=== PATIENT | male | born 1970 | race Caucasian/White ===

== ENCOUNTER → 2016-07-13 | Outpatient (REF) | payer MEDICAID ==
[2016-07-16 00:06] LABS: BENZODIAZEPINES, URINE SCREEN Negative ng/mL (Cutoff=200); METHADONE, URINE SCREEN Negative ng/mL (Cutoff=300)
== END ==
LOC: M SFHCSACK 10:11
PROVIDERS: ATTEND Physician Assistant
DX: F11.90 Opioid use, unspecified, uncomplicated (principal)

== ENCOUNTER → 2016-08-10 | Outpatient (REF) | payer OTHER ==
[2016-08-13 00:06] LABS: BENZODIAZEPINES, URINE SCREEN Negative ng/mL (Cutoff=200); METHADONE, URINE SCREEN Negative ng/mL (Cutoff=300); pH, URINE 5.6 (4.5-8.9)
== END ==
LOC: M SFHCSACK 10:39
PROVIDERS: ATTEND Physician Assistant
DX: M50.30 Other cervical disc degeneration, unspecified cervical region (principal); F11.90 Opioid use, unspecified, uncomplicated

== ENCOUNTER 2016-09-03 11:33 | Emergency (ER) | payer OTHER ==
[~2016-09-03] VITALS: Ht 177.8 cm; Wt 131.5 kg
[2016-09-03] MEDS ORDERED: OXYC1SOL PO (11:42)
[2016-09-03] MEDS ORDERED: FURO40TA2 PO (11:46)
[2016-09-03] MEDS ORDERED: MELA0.02 PO (11:46)
[2016-09-03] MEDS ORDERED: PRIL20CA9 PO (11:46)
[2016-09-03] MEDS ORDERED: CELE20TA PO (11:46)
[2016-09-03] MEDS ORDERED: SIMV40TA2 PO (11:46)
[2016-09-03] MEDS ORDERED: IBUP600T26 PO (11:46)
[2016-09-03] MEDS ORDERED: BUPR10TASR PO (11:46)
[2016-09-03] MEDS ORDERED: ROPI4TAB21 PO (11:46)
[2016-09-03] MEDS ORDERED: NEUR300C PO (11:46)
[2016-09-03] MEDS ORDERED: CARV25TA PO (11:46)
[2016-09-03] MEDS ORDERED: ASPI81CH PO (11:46)
[2016-09-03] MEDS ORDERED: COLA100C3 PO (11:46)
[2016-09-03 12:53] LABS: ANION GAP 5 MEQ/L (8-16); BLOOD UREA NITROGEN 16 MG/DL (7-18); CALCIUM LEVEL 9.2 MG/DL (8.5-10.1); CARBON DIOXIDE LEVEL 30 MEQ/L (21-32); CHLORIDE LEVEL 104 MEQ/L (98-107); CREATININE FOR GFR 0.84 MG/DL (0.70-1.30); GLOMERULAR FILTRATION RATE > 60.0 (>60); GLUCOSE, FASTING 102 MG/DL (70-105); POTASSIUM SERUM 4.4 MEQ/L (3.5-5.1); SODIUM LEVEL 139 MEQ/L (136-145)
[2016-09-03 13:11] LABS: BASO # 0.3 K/mm3 (0.0-0.2); BASO % 2.9 % (0.0-1.0); EOS # 0.4 K/mm3 (0.0-0.50); EOS % 3.7 % (0.0-3.0); LARGE UNSTAINED CELL # 0.3 K/mm3 (0.0-0.4); LYMPH # 2.5 K/mm3 (1.5-4.5); MEAN CORPUSCULAR HEMOGLOBIN 24.1 pg (27.0-33.0); MEAN CORPUSCULAR HGB CONC 31.4 g/dl (32.0-36.5); MEAN CORPUSCULAR VOLUME 76.7 fl (80.0-96.0); MONO # 0.8 K/mm3 (0.0-0.8); MONO % 6.8 % (0.0-5.0); NEUTROPHILS # 6.9 K/mm3 (1.8-7.7); NEUTROPHILS % 61.7 % (36.0-66.0); PLATELET COUNT, AUTOMATED 229 k/mm3 (150-450); RED CELL DISTRIBUTION WIDTH 17.9 % (11.5-14.5); WHITE BLOOD COUNT 11.2 K/mm3 (4.0-10.0)
[2016-09-03 13:55] LABS: ERYTHROCYTE SEDIMENTATION RATE 5 mm/hr (0-15)
[2016-09-03 14:12] VITALS: BP 118/67
--- NOTE | 2016-09-03 14:32 | REP ---
MR CERVICAL SPINE WITHOUT AND WITH CONTRAST: HISTORY: Neurofibroma. CONTRAST: ProHance 20 mL. COMPARISON: CT 09/02/2016. A disc bulge with associated osteophyte formation is present at the C5-6 level. There is minimal effacement of the thecal sac without spinal cord compression. Bilateral uncinate process hypertrophy is present. This produces minimal narrowing of the C5 neural foramina. There is no other disc bulge or herniation. The remaining neural foramina are patent. The spinal cord is normal in signal intensity. There is no abnormal enhancement. The C5-6 intervertebral disc is decreased in height consistent with disc degeneration. Normal signal intensity is present in the cervical vertebral bodies. There is loss of the normal lordotic curve. IMPRESSION: There is cervical spondylosis at the C5-6 level without spinal cord compression. Signed by Jaleel Thomas MD 09/03/2016 02:35 P
== END 2016-09-03 14:15 | disposition home or self-care (01) ==
LOC: M ED 12:43
DX: M50.222 Other cervical disc displacement at C5-C6 level (principal); I10 Essential (primary) hypertension; G89.29 Other chronic pain; M51.9 Unspecified thoracic, thoracolumbar and lumbosacral intervertebral disc disorder; Z79.899 Other long term (current) drug therapy; Z79.82 Long term (current) use of aspirin; Z88.1 Allergy status to other antibiotic agents
CPT/HCPCS: 36415; 72156; 80048; 85025; 85652; 99282; A9576

== ENCOUNTER → 2016-10-12 | Outpatient (REF) | payer OTHER ==
[~2016-10-12] MED LIST: ASPI81CH PO; BUPR10TASR PO; CARV25TA PO; CELE20TA PO; COLA100C3 PO; FURO40TA2 PO; IBUP600T26 PO; MELA0.02 PO; NEUR300C PO; OXYC1SOL PO; PRIL20CA9 PO; ROPI4TAB21 PO; SIMV40TA2 PO
[2016-10-12 15:42] LABS: BASO # 0.2 K/mm3 (0.0-0.2); BASO % 1.6 % (0.0-1.0); EOS # 0.3 K/mm3 (0.0-0.50); EOS % 2.7 % (0.0-3.0); LARGE UNSTAINED CELL # 0.3 K/mm3 (0.0-0.4); LARGE UNSTAINED CELL % 2.6 % (0.0-4.0); LYMPH # 2.7 K/mm3 (1.5-4.5); LYMPH % 27.3 % (24.0-44.0); MEAN CORPUSCULAR HEMOGLOBIN 25.1 pg (27.0-33.0); MEAN CORPUSCULAR HGB CONC 31.5 g/dl (32.0-36.5); MEAN CORPUSCULAR VOLUME 79.8 fl (80.0-96.0); MONO # 0.7 K/mm3 (0.0-0.8); MONO % 6.9 % (0.0-5.0); NEUTROPHILS # 5.8 K/mm3 (1.8-7.7); NEUTROPHILS % 58.9 % (36.0-66.0); PLATELET COUNT, AUTOMATED 224 k/mm3 (150-450); RED CELL DISTRIBUTION WIDTH 17.5 % (11.5-14.5); WHITE BLOOD COUNT 9.9 K/mm3 (4.0-10.0)
== END ==
LOC: M SFHCSACK 11:24
PROVIDERS: ATTEND Physician Assistant
DX: E78.2 Mixed hyperlipidemia (principal)

== ENCOUNTER → 2017-01-13 | Outpatient (REF) | payer OTHER ==
[~2017-01-13] MED LIST changes: -COLA100C3 PO; +COLA100C5 PO; +IBUP-1022 PO; -IBUP600T26 PO; -MELA0.02 PO; +MELA3TAB49 PO; -OXYC1SOL PO; +OXYC1SOL3 PO
[2017-01-13 16:16] LABS: BASO # 0.3 K/mm3 (0.0-0.2); BASO % 2.9 % (0.0-1.0); EOS # 0.2 K/mm3 (0.0-0.50); EOS % 2.3 % (0.0-3.0); LARGE UNSTAINED CELL # 0.2 K/mm3 (0.0-0.4); LARGE UNSTAINED CELL % 1.6 % (0.0-4.0); LYMPH # 2.6 K/mm3 (1.5-4.5); LYMPH % 22.7 % (24.0-44.0); MEAN CORPUSCULAR HEMOGLOBIN 24.8 pg (27.0-33.0); MEAN CORPUSCULAR HGB CONC 31.5 g/dl (32.0-36.5); MEAN CORPUSCULAR VOLUME 78.8 fl (80.0-96.0); MONO # 0.8 K/mm3 (0.0-0.8); MONO % 7.1 % (0.0-5.0); NEUTROPHILS # 6.8 K/mm3 (1.8-7.7); NEUTROPHILS % 63.5 % (36.0-66.0); PLATELET COUNT, AUTOMATED 242 k/mm3 (150-450); RED CELL DISTRIBUTION WIDTH 16.6 % (11.5-14.5); WHITE BLOOD COUNT 10.7 K/mm3 (4.0-10.0)
[2017-01-13 17:17] LABS: ALBUMIN 3.5 GM/DL (3.2-5.2); ALBUMIN/GLOBULIN RATIO 1.03 (1.00-1.93); ALKALINE PHOSPHATASE 136 U/L (45-117); ALT/SGPT 32 U/L (12-78); ANION GAP 10 MEQ/L (8-16); AST/SGOT 18 U/L (15-37); BILIRUBIN,TOTAL 0.3 MG/DL (0.2-1.0); BLOOD UREA NITROGEN 12 MG/DL (7-18); CALCIUM LEVEL 8.1 MG/DL (8.5-10.1); CARBON DIOXIDE LEVEL 28 MEQ/L (21-32); CHLORIDE LEVEL 104 MEQ/L (98-107); CHOLESTEROL LEVEL 159 MG/DL (<200); CREATININE FOR GFR 0.77 MG/DL (0.70-1.30); FREE T4 0.96 NG/DL (0.76-1.46); GLOMERULAR FILTRATION RATE > 60.0 (>60); GLUCOSE, FASTING 90 MG/DL (70-105); SODIUM LEVEL 142 MEQ/L (136-145); TOTAL PROTEIN 6.9 GM/DL (6.4-8.2); TRIGLYCERIDES LEVEL 364 MG/DL (<150)
== END ==
LOC: M SFHCSACK 09:51
PROVIDERS: ATTEND Physician Assistant
DX: R53.83 Other fatigue (principal); I10 Essential (primary) hypertension; E78.2 Mixed hyperlipidemia

== ENCOUNTER → 2017-02-05 | Outpatient (REF) | payer OTHER ==
[2017-02-05 17:27] LABS: PERCENT SATURATION 14.4 % (19.7-50.0)
== END ==
LOC: M SFHCSACK 10:40
PROVIDERS: ATTEND Physician Assistant
DX: D64.9 Anemia, unspecified (principal)

== ENCOUNTER → 2017-05-19 | Outpatient (REF) | payer OTHER ==
[2017-05-19 14:58] LABS: BASO # 0.6 10^3/uL (0.0-0.2); EOS # 0.4 10^3/uL (0.0-0.50); EOS % 3.3 % (0.0-3.0); IMMATURE GRANULOCYTE % 4.6 % (0-0); LYMPH % 28.2 % (24.0-44.0); MEAN CORPUSCULAR HEMOGLOBIN 25.2 pg (27.0-33.0); MEAN CORPUSCULAR VOLUME 81.4 fl (80.0-96.0); MONO # 1.1 10^3/uL (0.0-0.8); MONO % 10.5 % (0.0-5.0); NEUTROPHILS % 47.8 % (36.0-66.0); PLATELET COUNT, AUTOMATED 256 10^3/uL (150-450); RED CELL DISTRIBUTION WIDTH 16.9 % (11.5-14.5); WHITE BLOOD COUNT 10.5 10^3/uL (4.0-10.0)
[2017-05-19 15:28] LABS: ALBUMIN 3.8 GM/DL (3.2-5.2); ALBUMIN/GLOBULIN RATIO 1.06 (1.00-1.93); ALKALINE PHOSPHATASE 121 U/L (45-117); ALT/SGPT 27 U/L (12-78); ANION GAP 6 MEQ/L (8-16); AST/SGOT 15 U/L (7-37); BILIRUBIN,TOTAL 0.3 MG/DL (0.2-1.0); BLOOD UREA NITROGEN 15 MG/DL (7-18); CALCIUM LEVEL 8.4 MG/DL (8.5-10.1); CARBON DIOXIDE LEVEL 31 MEQ/L (21-32); CHLORIDE LEVEL 101 MEQ/L (98-107); CHOLESTEROL LEVEL 208 MG/DL (<200); CREATININE FOR GFR 0.79 MG/DL (0.70-1.30); GLOMERULAR FILTRATION RATE > 60.0 (>60); GLUCOSE, FASTING 101 MG/DL (70-105); POTASSIUM SERUM 4.7 MEQ/L (3.5-5.1); SODIUM LEVEL 138 MEQ/L (136-145); TOTAL PROTEIN 7.4 GM/DL (6.4-8.2); TRIGLYCERIDES LEVEL 237 MG/DL (<150)
[2017-05-19 15:40] LABS: BASO % 5.6 % (0.0-1.0); POSITIVE DIFF POS FLAG
== END ==
LOC: M SFHCSACK 08:43
PROVIDERS: ATTEND Physician Assistant
DX: I10 Essential (primary) hypertension (principal); D64.9 Anemia, unspecified; E78.2 Mixed hyperlipidemia; E55.9 Vitamin D deficiency, unspecified

== ENCOUNTER 2017-05-30 03:39 | Inpatient (IN) | payer BC, OTHER ==
[2017-05-30] MEDS: ADACEL/BOOSTRIX VACCINE (DIPHTH/PERTUSS/ACELL/TETANUS)0.5ML SYR (90715) IM (04:34)
[2017-05-30] MEDS: ONDANSETRON 4MG/2ML VIAL (J2405) IV (05:14)
[2017-05-30] MEDS: MORPHINE 4 MG/ML 1ML SYRINGE IV ×3 (05:16→07:45)
[2017-05-30 05:26] LABS: MEAN CORPUSCULAR HEMOGLOBIN 25.3 pg (27.0-33.0); MEAN CORPUSCULAR HGB CONC 31.7 g/dl (32.0-36.5); MEAN CORPUSCULAR VOLUME 79.7 fl (80.0-96.0); PLATELET COUNT, AUTOMATED 267 10^3/uL (150-450); RED CELL DISTRIBUTION WIDTH 17.4 % (11.5-14.5); WHITE BLOOD COUNT 18.4 10^3/uL (4.0-10.0)
[2017-05-30 05:35] LABS: ANION GAP 7 MEQ/L (8-16); BLOOD UREA NITROGEN 11 MG/DL (7-18); CALCIUM LEVEL 8.1 MG/DL (8.5-10.1); CARBON DIOXIDE LEVEL 27 MEQ/L (21-32); CHLORIDE LEVEL 104 MEQ/L (98-107); CREATININE FOR GFR 0.81 MG/DL (0.70-1.30); GLOMERULAR FILTRATION RATE > 60.0 (>60); GLUCOSE, FASTING 102 MG/DL (70-105); POTASSIUM SERUM 3.7 MEQ/L (3.5-5.1); SODIUM LEVEL 138 MEQ/L (136-145)
[2017-05-30] MEDS: NS 1,000 ML IV ×2 (06:00→09:30)
[2017-05-30] MEDS ORDERED: LIDOCAINE 1% MDV 20ML VIAL As Ordered (07:31)
[2017-05-30] MEDS: CitaloPRAM (CeleXA) 20 MG TAB PO (09:00)
[2017-05-30] MEDS: OMEPRAZOLE 20 MG CAP PO (09:00)
[2017-05-30] MEDS: rOPINIRole 0.25 MG TAB(REQUIP) PO (09:00)
[2017-05-30] MEDS: SIMVASTATIN 40 MG TAB PO (09:00)
[2017-05-30] MEDS: FOLIC ACID 1 MG TAB PO (09:00)
[2017-05-30] MEDS: THIAMINE 100 MG TAB PO (09:00)
[2017-05-30] MEDS: buPROPion **XL** TABLET 150MG (WELLBUTRIN XL) PO (09:00)
[2017-05-30] MEDS: MULTIVITAMINS/MINERALS THERAP 1 TAB PO (09:00)
[2017-05-30] MEDS ORDERED: LR 1,000 ML IV (09:30)
[2017-05-30] MEDS ORDERED: ISOVUE-370 76% 100ML VIAL (Q9967) As Ordered (09:42)
[2017-05-30] MEDS: MORPHINE 2 MG/ML 1ML SYRINGE IV ×2 (10:19→13:37)
[2017-05-30 10:34] LABS: KETONE, URINE AUTO RFX NEGATIVE (NEGATIVE); LEUKOCYTE ESTERASE UR AUTO RFX NEGATIVE (NEGATIVE); MUCUS, URINE RFX SMALL (NEGATIVE); NITRITE, URINE AUTO RFX NEGATIVE (NEGATIVE); RBC, URINE AUTO RFX 1 /HPF (0-3); SPECIFIC GRAVITY UR AUTO RFX 1.005 (1.002-1.035); SQUAM EPITHELIAL CELL UR AURFX 0 /HPF (0-6); WBC, URINE AUTO RFX 1 /HPF (0-3)
[2017-05-30 10:50] LABS: METHADONE URINE NEGATIVE (NEGATIVE)
[2017-05-30] MEDS: CARVedilol 12.5 MG TAB PO ×2 (11:16→23:12)
[2017-05-30] MEDS: LABETALOL HCL 100 MG/20 ML VIAL IV (11:16)
[2017-05-30] MEDS ORDERED: ROCURONIUM BROMIDE 50 MG/5 ML VIAL As Ordered ×2 (14:23→15:00)
[2017-05-30] MEDS ORDERED: LIDOCAINE 2% INJ 100 MG/5 ML SDV (FOR ANES.) As Ordered (14:23)
[2017-05-30] MEDS ORDERED: PROPOFOL 200 MG/20 ML VIAL As Ordered ×2 (14:23→14:41)
[2017-05-30] MEDS ORDERED: fentaNYL 100 MCG/2 ML INJECTION (J3010) As Ordered ×3 (14:23→18:21)
[2017-05-30] MEDS ORDERED: PHENYLEPHRINE INJ 10MG/ML VIAL (J2370) As Ordered (14:23)
[2017-05-30] MEDS ORDERED: MIDAZOLAM INJ 2 MG/2 ML VIAL (J2250) As Ordered ×2 (14:23→18:24)
[2017-05-30] MEDS ORDERED: SUCCINYLCHOLINE 100 MG/5 ML SYRINGE (J0330) As Ordered (14:24)
[2017-05-30] MEDS ORDERED: PHENYLephrine HCL 500 MCG/5 ML (100MCG/ML) SYRINGE (J2370) As Ordered (14:24)
[2017-05-30] MEDS: ceFAZolin 2 GM/D5W 50 ML IV BAG (J0690 PER 500MG) As Ordered (14:29)
[2017-05-30] MEDS ORDERED: HYDROmorphone HCL 2 MG/ML 1ML VIAL (J1170) As Ordered (15:46)
[2017-05-30] MEDS: GABAPENTIN 300 MG CAP PO ×2 (16:00→23:11)
[2017-05-30] MEDS ORDERED: LABETALOL HCL 100 MG/20 ML VIAL As Ordered (16:09)
[2017-05-30] MEDS ORDERED: ONDANSETRON 4MG/2ML VIAL (J2405) As Ordered (16:24)
[2017-05-30] MEDS: ceFAZolin 1GM INJ (J0690 PER 500MG) As Ordered (16:24)
[2017-05-30] MEDS ORDERED: NEOSTIGMINE 10 MG/10 ML VIAL (J2710) As Ordered (16:24)
[2017-05-30] MEDS ORDERED: GLYCOPYRROLATE INJ 0.2 MG/ML 2 ML VIAL As Ordered (16:24)
[2017-05-30] MEDS: BUPIVACAINE HCL 0.5% 30 ML VIAL As Ordered (17:26)
[2017-05-30] MEDS: LR 1,000 ML IV ×2 (17:55→23:11)
[2017-05-30] MEDS ORDERED: PERCOCET 5MG/325MG TAB As Ordered (18:19)
[2017-05-30] MEDS: PERCOCET 5MG/325MG TAB PO (18:20)
[2017-05-30] MEDS: fentaNYL 100 MCG/2 ML INJECTION (J3010) IV ×3 (18:25→18:35)
[2017-05-30] MEDS: MIDAZOLAM INJ 2 MG/2 ML VIAL (J2250) IV (18:33)
[2017-05-30] MEDS ORDERED: FLEET ENEMA PR (19:45)
[2017-05-30] MEDS ORDERED: ONDANSETRON 4MG/2ML VIAL (J2405) IV (19:45)
[2017-05-30] MEDS ORDERED: oxyCODONE 5MG TAB PO (19:45)
[2017-05-30] MEDS: oxyCODONE 5MG TAB PO (21:09)
[2017-05-30] MEDS: ACETAMINOPHEN 500 MG TAB PO (23:12)
[2017-05-31] MEDS: MORPHINE 4 MG/ML 1ML SYRINGE IV (00:23)
[2017-05-31] MEDS: oxyCODONE 5MG TAB PO ×3 (01:22→21:11)
[2017-05-31] MEDS: ACETAMINOPHEN 500 MG TAB PO ×3 (05:07→21:10)
[2017-05-31 05:42] LABS: MEAN CORPUSCULAR HEMOGLOBIN 25.5 pg (27.0-33.0); MEAN CORPUSCULAR HGB CONC 31.6 g/dl (32.0-36.5); MEAN CORPUSCULAR VOLUME 80.7 fl (80.0-96.0); PLATELET COUNT, AUTOMATED 226 10^3/uL (150-450); RED CELL DISTRIBUTION WIDTH 17.5 % (11.5-14.5); WHITE BLOOD COUNT 18.9 10^3/uL (4.0-10.0)
[2017-05-31] MEDS: ENOXAPARIN 40 MG/0.4 ML SYRINGE (J1650) SC (08:33)
[2017-05-31] MEDS: OMEPRAZOLE 20 MG CAP PO (08:33)
[2017-05-31] MEDS: GABAPENTIN 300 MG CAP PO ×3 (08:34→21:08)
[2017-05-31] MEDS: FOLIC ACID 1 MG TAB PO (08:34)
[2017-05-31] MEDS: SIMVASTATIN 40 MG TAB PO (08:34)
[2017-05-31] MEDS: MULTIVITAMINS/MINERALS THERAP 1 TAB PO (08:34)
[2017-05-31] MEDS: THIAMINE 100 MG TAB PO (08:34)
[2017-05-31] MEDS: ASPIRIN 81 MG CHEW TABLET PO (08:36)
[2017-05-31] MEDS: CitaloPRAM (CeleXA) 20 MG TAB PO (08:36)
[2017-05-31] MEDS: buPROPion **XL** TABLET 150MG (WELLBUTRIN XL) PO (08:37)
[2017-05-31] MEDS: rOPINIRole 0.25 MG TAB(REQUIP) PO (08:37)
[2017-05-31] MEDS: CARVedilol 12.5 MG TAB PO ×2 (08:38→21:08)
[2017-05-31] MEDS: MIRALAX *UNIT DOSE* 17GM PACKET PO (21:11)
[2017-05-31] MEDS: CLINDAMYCIN 150 MG CAP PO (22:12)
[2017-06-01] MEDS: oxyCODONE 5MG TAB PO ×4 (02:19→21:04)
[2017-06-01] MEDS: ACETAMINOPHEN 500 MG TAB PO ×3 (07:06→21:06)
[2017-06-01] MEDS: CLINDAMYCIN 150 MG CAP PO ×4 (08:49→21:06)
[2017-06-01] MEDS: rOPINIRole 0.25 MG TAB(REQUIP) PO (08:50)
[2017-06-01] MEDS: MULTIVITAMINS/MINERALS THERAP 1 TAB PO (08:50)
[2017-06-01] MEDS: THIAMINE 100 MG TAB PO (08:50)
[2017-06-01] MEDS: GABAPENTIN 300 MG CAP PO ×3 (08:50→21:03)
[2017-06-01] MEDS: FOLIC ACID 1 MG TAB PO (08:50)
[2017-06-01] MEDS: CitaloPRAM (CeleXA) 20 MG TAB PO (08:50)
[2017-06-01] MEDS: ASPIRIN 81 MG CHEW TABLET PO (08:50)
[2017-06-01] MEDS: OMEPRAZOLE 20 MG CAP PO (08:50)
[2017-06-01] MEDS: buPROPion **XL** TABLET 150MG (WELLBUTRIN XL) PO (08:50)
[2017-06-01] MEDS: SIMVASTATIN 40 MG TAB PO (08:51)
[2017-06-01] MEDS: ENOXAPARIN 40 MG/0.4 ML SYRINGE (J1650) SC (08:52)
[2017-06-01] MEDS: CARVedilol 12.5 MG TAB PO ×2 (08:52→21:05)
[2017-06-01] MEDS: MIRALAX *UNIT DOSE* 17GM PACKET PO (21:06)
[2017-06-01] MEDS: MORPHINE 4 MG/ML 1ML SYRINGE IV (23:08)
[2017-06-02] MEDS: oxyCODONE 5MG TAB PO ×2 (04:18→08:18)
[2017-06-02] MEDS: ACETAMINOPHEN 500 MG TAB PO (05:26)
[2017-06-02] MEDS: MULTIVITAMINS/MINERALS THERAP 1 TAB PO (08:17)
[2017-06-02] MEDS: SIMVASTATIN 40 MG TAB PO (08:17)
[2017-06-02] MEDS: OMEPRAZOLE 20 MG CAP PO (08:17)
[2017-06-02] MEDS: CitaloPRAM (CeleXA) 20 MG TAB PO (08:18)
[2017-06-02] MEDS: CLINDAMYCIN 150 MG CAP PO (08:18)
[2017-06-02] MEDS: FOLIC ACID 1 MG TAB PO (08:18)
[2017-06-02] MEDS: buPROPion **XL** TABLET 150MG (WELLBUTRIN XL) PO (08:18)
[2017-06-02] MEDS: THIAMINE 100 MG TAB PO (08:18)
[2017-06-02] MEDS: ASPIRIN 81 MG CHEW TABLET PO (08:19)
[2017-06-02] MEDS: CARVedilol 12.5 MG TAB PO (08:19)
[2017-06-02] MEDS: ENOXAPARIN 40 MG/0.4 ML SYRINGE (J1650) SC (08:19)
[2017-06-02] MEDS: rOPINIRole 0.25 MG TAB(REQUIP) PO (08:19)
[2017-06-02] MEDS: GABAPENTIN 300 MG CAP PO (08:19)
== END 2017-06-02 13:06 | disposition home or self-care (01) | DRG 313 ==
LOC: M ED 03:39 → M ED INP 09:10 → M MSPAV 19:42
PROC: 0QSJ04Z Reposition Right Fibula with Internal Fixation Device, Open Approach (ICD-10-PCS; principal; 2017-05-30 10:00)
PROC: 01NH0ZZ Release Peroneal Nerve, Open Approach (ICD-10-PCS; 2017-05-30 10:00)
DX: S82.841A Displaced bimalleolar fracture of right lower leg, initial encounter for closed fracture (principal); S02.401A Maxillary fracture, unspecified side, initial encounter for closed fracture; E55.9 Vitamin D deficiency, unspecified; G57.32 Lesion of lateral popliteal nerve, left lower limb; J45.20 Mild intermittent asthma, uncomplicated; F10.129 Alcohol abuse with intoxication, unspecified; S01.512A Laceration without foreign body of oral cavity, initial encounter; K21.9 Gastro-esophageal reflux disease without esophagitis; D64.9 Anemia, unspecified; G89.29 Other chronic pain; I25.10 Atherosclerotic heart disease of native coronary artery without angina pectoris; F32.9 Major depressive disorder, single episode, unspecified; E78.5 Hyperlipidemia, unspecified; Z95.2 Presence of prosthetic heart valve; I10 Essential (primary) hypertension; I25.2 Old myocardial infarction; Z79.82 Long term (current) use of aspirin; Z79.899 Other long term (current) drug therapy; Y04.0XXA Assault by unarmed brawl or fight, initial encounter; Y92.009 Unspecified place in unspecified non-institutional (private) residence as the place of occurrence of the external cause; K76.0 Fatty (change of) liver, not elsewhere classified

== ENCOUNTER 2017-07-01 09:28 | Day surgery (SDC) | payer BC ==
[2017-07-01] MEDS: EPINEPHrine 1MG/ML INJ 30ML MD-VIAL As Ordered (10:19)
[2017-07-01] MEDS: METHYLENE BLUE 0.5% (5MG/ML) 10 ML AMP (PROVAYBLUE)(Q9968 PER 1MG) As Ordered (10:19)
[2017-07-01] MEDS ORDERED: fentaNYL 100 MCG/2 ML INJECTION (J3010) As Ordered (10:27)
[2017-07-01] MEDS ORDERED: PROPOFOL 200 MG/20 ML VIAL As Ordered (10:27)
[2017-07-01] MEDS ORDERED: SUCCINYLCHOLINE 100 MG/5 ML SYRINGE (J0330) As Ordered (10:27)
[2017-07-01] MEDS ORDERED: MIDAZOLAM INJ 2 MG/2 ML VIAL (J2250) As Ordered (10:27)
[2017-07-01] MEDS ORDERED: ROCURONIUM BROMIDE 50 MG/5 ML VIAL As Ordered (10:27)
[2017-07-01] MEDS ORDERED: dexameTHASONE 4 MG/ML 1ML VIAL (J1100) As Ordered (10:29)
[2017-07-01] MEDS ORDERED: ONDANSETRON 4MG/2ML VIAL (J2405) As Ordered (10:29)
[2017-07-01] MEDS ORDERED: LR 1,000 ML IV (11:00)
[2017-07-01] MEDS: ACETAMINOPH W/CODEINE #3 TAB UD PO (12:53)
== END 2017-07-01 13:14 | disposition home or self-care (01) ==
LOC: M SDC 09:28
DX: S02.2XXA Fracture of nasal bones, initial encounter for closed fracture (principal); Y93.9 Activity, unspecified; Y92.9 Unspecified place or not applicable
CPT/HCPCS: 21320

== ENCOUNTER → 2017-08-13 | Outpatient (CLI) | payer MEDICAID ==
[2017-08-13 13:26] LABS: ALBUMIN/GLOBULIN RATIO 1.08 (1.00-1.93); ALKALINE PHOSPHATASE 124 U/L (45-117); ALT/SGPT 22 U/L (12-78); AST/SGOT 19 U/L (7-37); BILIRUBIN,DIRECT 0.1 MG/DL (0.0-0.2); BILIRUBIN,TOTAL 0.3 MG/DL (0.2-1.0); FERRITIN 17 NG/ML (26-388); IRON (FE) 69 UG/DL (65-175); PERCENT SATURATION 16.1 % (19.7-50.0); TOTAL IRON BINDING CAPACITY 429 UG/DL (250-450); TOTAL PROTEIN 7.7 GM/DL (6.4-8.2)
[2017-08-13 13:29] LABS: ALPHA FETOPROTEIN TUMOR QUANT < 1.3 NG/ML (<8.1)
[2017-08-13 13:30] LABS: HEPATITIS B SURFACE ANTIBODY NEGATIVE (POSITIVE)
[2017-08-13 13:41] LABS: HEPATITIS B SURFACE ANTIGEN NEGATIVE (NEGATIVE)
[2017-08-13 14:09] LABS: HEPATITIS C VIRUS ABY INDEX 0.5 INDEX (<0.8)
[2017-08-15 00:08] LABS: ANTI-SMOOTH MUSCLE ANTIBODY 19 Units (0-19)
[2017-08-15 00:08] LABS: ANTI-MITOCHONDRIAL ANTIBODY 68.1 Units (0.0-20.0); ANTINUCLEAR ANTIBODIES DIRECT Negative (Negative); HEPATITIS A IgG TOTAL Negative (Negative); LIVER-KIDNEY MICROSOMAL ABY 2.1 Units (0.0-20.0)
== END ==
LOC: M LAB 11:49
DX: R94.5 Abnormal results of liver function studies (principal)
CPT/HCPCS: 83550

== ENCOUNTER → 2017-08-13 | Outpatient (CLI) | payer MEDICAID | LOC: M PAIN 14:30 | DX: G89.29 Other chronic pain (principal); M25.571 Pain in right ankle and joints of right foot; E78.5 Hyperlipidemia, unspecified; I10 Essential (primary) hypertension; I25.2 Old myocardial infarction; K21.9 Gastro-esophageal reflux disease without esophagitis; F41.9 Anxiety disorder, unspecified; K76.0 Fatty (change of) liver, not elsewhere classified; Z79.82 Long term (current) use of aspirin; Z79.891 Long term (current) use of opiate analgesic; Z79.899 Other long term (current) drug therapy; Z88.1 Allergy status to other antibiotic agents; Z86.79 Personal history of other diseases of the circulatory system | CPT/HCPCS: G0463 ==

== ENCOUNTER → 2017-08-31 | Outpatient (CLI) | payer MEDICAID, BC | LOC: M RAD 08:37 | DX: R94.5 Abnormal results of liver function studies (principal); K76.0 Fatty (change of) liver, not elsewhere classified | CPT/HCPCS: 76705 ==

== ENCOUNTER → 2017-09-17 | Outpatient (CLI) | payer MEDICAID | LOC: M PAIN 11:00 | DX: G89.29 Other chronic pain (principal); M25.572 Pain in left ankle and joints of left foot; E78.5 Hyperlipidemia, unspecified; I10 Essential (primary) hypertension; I25.2 Old myocardial infarction; K21.9 Gastro-esophageal reflux disease without esophagitis; F41.9 Anxiety disorder, unspecified; K76.0 Fatty (change of) liver, not elsewhere classified; Z79.82 Long term (current) use of aspirin; Z79.891 Long term (current) use of opiate analgesic; Z79.899 Other long term (current) drug therapy; Z88.1 Allergy status to other antibiotic agents; Z87.81 Personal history of (healed) traumatic fracture; Z87.828 Personal history of other (healed) physical injury and trauma | CPT/HCPCS: G0463 ==

== ENCOUNTER 2018-01-04 09:33 | Day surgery (SDC) | payer OTHER ==
[2018-01-04] MEDS ORDERED: PROPOFOL 500 MG/50 ML VIAL As Ordered (09:37)
[2018-01-04] MEDS ORDERED: fentaNYL 100 MCG/2 ML INJECTION (J3010) As Ordered (09:44)
[2018-01-04] MEDS ORDERED: LIDOCAINE 2% INJ 100 MG/5 ML SDV (FOR ANES.) As Ordered (09:44)
[2018-01-04] MEDS: NS 1,000 ML IV (09:45)
== END 2018-01-04 11:44 | disposition home or self-care (01) ==
LOC: M OPP 09:33
DX: D50.9 Iron deficiency anemia, unspecified (principal); K63.89 Other specified diseases of intestine; D12.3 Benign neoplasm of transverse colon; D12.5 Benign neoplasm of sigmoid colon; K62.1 Rectal polyp; K57.30 Diverticulosis of large intestine without perforation or abscess without bleeding; K64.8 Other hemorrhoids; K22.8 Other specified diseases of esophagus; K31.89 Other diseases of stomach and duodenum; I10 Essential (primary) hypertension; I25.2 Old myocardial infarction; R07.89 Other chest pain; Z95.5 Presence of coronary angioplasty implant and graft; I20.9 Angina pectoris, unspecified; E78.5 Hyperlipidemia, unspecified; K21.9 Gastro-esophageal reflux disease without esophagitis; M19.90 Unspecified osteoarthritis, unspecified site; F41.9 Anxiety disorder, unspecified; F32.9 Major depressive disorder, single episode, unspecified; J45.909 Unspecified asthma, uncomplicated; G47.30 Sleep apnea, unspecified; Z88.1 Allergy status to other antibiotic agents; Z79.82 Long term (current) use of aspirin; Z79.899 Other long term (current) drug therapy
CPT/HCPCS: 45380

== ENCOUNTER → 2018-01-05 | Outpatient (REF) | payer OTHER, MEDICAID ==
[2018-01-05 14:49] LABS: ALBUMIN 3.5 GM/DL (3.2-5.2); ALBUMIN/GLOBULIN RATIO 0.88 (1.00-1.93); ALKALINE PHOSPHATASE 115 U/L (45-117); ALT/SGPT 25 U/L (12-78); ANION GAP 7 MEQ/L (8-16); AST/SGOT 20 U/L (7-37); BILIRUBIN,TOTAL 0.3 MG/DL (0.2-1.0); BLOOD UREA NITROGEN 11 MG/DL (7-18); CALCIUM LEVEL 8.6 MG/DL (8.5-10.1); CARBON DIOXIDE LEVEL 29 MEQ/L (21-32); CHLORIDE LEVEL 106 MEQ/L (98-107); CHOLESTEROL LEVEL 198 MG/DL (<200); CREATININE FOR GFR 0.75 MG/DL (0.70-1.30); GLOMERULAR FILTRATION RATE > 60.0 (>60); GLUCOSE, FASTING 94 MG/DL (70-100); HDL CHOLESTEROL 60 MG/DL (>40); NON-HDL-C 138 MG/DL; SODIUM LEVEL 142 MEQ/L (136-145); TOTAL PROTEIN 7.5 GM/DL (6.4-8.2); TRIGLYCERIDES LEVEL 140 MG/DL (<150)
[2018-01-05 14:51] LABS: POTASSIUM SERUM 5.3 MEQ/L (3.5-5.1)
== END ==
LOC: M SFHCSACK 08:11
DX: E78.2 Mixed hyperlipidemia (principal)
CPT/HCPCS: 80053

== ENCOUNTER → 2018-01-06 | Outpatient (CLI) | payer OTHER ==
[~2018-01-06] MED LIST changes: -ASPI81CH PO; -BUPR10TASR PO; -CARV25TA PO; -CELE20TA PO; -COLA100C5 PO; -FURO40TA2 PO; -IBUP-1022 PO; +LIDOCAINE 1% MDV 20ML VIAL As Ordered; -MELA3TAB49 PO; -NEUR300C PO; -OXYC1SOL3 PO; -PRIL20CA9 PO; -ROPI4TAB21 PO; -SIMV40TA2 PO
[2018-01-06 09:50] LABS: BASO # 0.4 10^3/uL (0.0-0.2); EOS # 0.3 10^3/uL (0.0-0.50); EOS % 2.1 % (0.0-3.0); IMMATURE GRANULOCYTE % 3.6 % (0-3.0); LYMPH # 3.1 10^3/uL (1.5-4.5); LYMPH % 24.2 % (24.0-44.0); MEAN CORPUSCULAR HEMOGLOBIN 25.5 pg (27.0-33.0); MEAN CORPUSCULAR HGB CONC 31.8 g/dl (32.0-36.5); MEAN CORPUSCULAR VOLUME 80.3 fl (80.0-96.0); MONO # 0.9 10^3/uL (0.0-0.8); MONO % 6.8 % (0.0-5.0); NEUTROPHILS # 7.6 10^3/uL (1.8-7.7); NEUTROPHILS % 59.8 % (36.0-66.0); PLATELET COUNT, AUTOMATED 266 10^3/uL (150-450); RED BLOOD COUNT 5.48 10^6/uL (4.30-6.10); RED CELL DISTRIBUTION WIDTH 16.7 % (11.5-14.5); WHITE BLOOD COUNT 12.7 10^3/uL (4.0-10.0)
[2018-01-06 10:01] LABS: INR 0.93; PARTIAL THROMBOPLASTIN TIME 27.6 SECONDS (25.4-37.6); PROTHROMBIN TIME 12.6 SECONDS (12.1-14.4)
[2018-01-06 10:05] LABS: FERRITIN 15 NG/ML (26-388); IRON (FE) 41 UG/DL (65-175); PERCENT SATURATION 9.8 % (19.7-50.0); TOTAL IRON BINDING CAPACITY 420 UG/DL (250-450)
[2018-01-06 10:06] LABS: BASO % 3.5 % (0.0-1.0); POSITIVE DIFF POS FLAG
== END ==
LOC: M RADPRO 09:35
DX: R94.5 Abnormal results of liver function studies (principal); D50.9 Iron deficiency anemia, unspecified
CPT/HCPCS: 47000

== ENCOUNTER → 2018-05-18 | Outpatient (CLI) | payer OTHER ==
[2018-05-18 17:53] LABS: ALBUMIN 4.2 GM/DL (3.2-5.2); ALKALINE PHOSPHATASE 92 U/L (45-117); ALT/SGPT 30 U/L (12-78); AST/SGOT 21 U/L (7-37); BILIRUBIN,DIRECT 0.1 MG/DL (0.0-0.2); BILIRUBIN,TOTAL 0.4 MG/DL (0.2-1.0); GAMMA GLUTAMYLTRANSPEPTIDASE 56 U/L (15-85); TOTAL PROTEIN 7.7 GM/DL (6.4-8.2)
[2018-05-21 00:08] LABS: ANTI-MITOCHONDRIAL ANTIBODY 67.3 Units (0.0-20.0)
== END ==
LOC: M LAB 16:49
DX: R94.5 Abnormal results of liver function studies (principal)
CPT/HCPCS: 82977

== ENCOUNTER → 2018-07-05 | Outpatient (REF) | payer MEDICAID, OTHER ==
[~2018-07-05] MED LIST changes: +ASPI325T PO; +ASPI325T25 PO; +ASPI81CH PO; +BUPR10TASR PO; +BUPR150T3 PO; +CARV25TA PO; +CELE20TA PO; +CLEO150C PO; +COLA100C5 PO; +DRIS50003 PO; +FURO40TA2 PO; +GABA600T4 PO; +IBUP-1022 PO; -LIDOCAINE 1% MDV 20ML VIAL As Ordered; +LISI20TA PO; +LOVE1INJ SC; +MELA3TAB PO; +MELA3TAB49 PO; +MELA5TAB17 PO; +MELA5TAB20 PO; +NEUR300C PO; +OXYC15TA76 PO; +OXYC1SOL3 PO; +OXYC1TAB23 PO; +PRIL20CA9 PO; +ROPI0.5T PO; +ROPI4TAB21 PO; +SIMV40TA2 PO
[2018-07-05 13:06] LABS: HEMATOCRIT 44.4 % (42.0-52.0); MEAN CORPUSCULAR HEMOGLOBIN 27.1 pg (27.0-33.0); MEAN CORPUSCULAR HGB CONC 31.5 g/dl (32.0-36.5); MEAN CORPUSCULAR VOLUME 85.9 fl (80.0-96.0); PLATELET COUNT, AUTOMATED 244 10^3/uL (150-450); RED BLOOD COUNT 5.17 10^6/uL (4.30-6.10)
[2018-07-05 13:07] LABS: BLOOD UREA NITROGEN 15 MG/DL (7-18); CALCIUM LEVEL 9.1 MG/DL (8.5-10.1); CARBON DIOXIDE LEVEL 29 MEQ/L (21-32); CHLORIDE LEVEL 103 MEQ/L (98-107); CREATININE FOR GFR 0.86 MG/DL (0.70-1.30); GLOMERULAR FILTRATION RATE > 60.0 (>60); GLUCOSE, FASTING 97 MG/DL (70-100); POTASSIUM SERUM 5.2 MEQ/L (3.5-5.1); SODIUM LEVEL 138 MEQ/L (136-145)
[2018-07-05 13:56] LABS: BASOPHILS 4 % (0-4); EOSINOPHILS 3 % (0-5); LYMPHOCYTES 21 % (16-52); MONOCYTES 2 % (0-8); NEUTROPHILS 70 % (35-75)
[2018-07-05 13:57] LABS: PLATELET ESTIMATE NORMAL (NORMAL)
== END ==
LOC: M SFHCADAM 09:16
PROVIDERS: ATTEND Physician Assistant Medical
DX: Z01.818 Encounter for other preprocedural examination (principal); M16.52 Unilateral post-traumatic osteoarthritis, left hip; M25.551 Pain in right hip

== ENCOUNTER → 2018-07-05 | Outpatient (CLI) | payer OTHER ==
[~2018-07-05] MED LIST changes: +CONRAY-43 43% 50ML VIAL (Q9960) As Ordered ONE; +LIDOCAINE 1% MDV 20ML VIAL As Ordered ONE; +TRIAMCINOLONE ACETONIDE SUSP 40 MG/ML VIAL (J3301) As Ordered ONE
--- NOTE | 2018-07-05 13:53 | REP ---
LEFT ANKLE INJECTION The procedure was performed under the direct supervision of Dr. nieto. The benefits and risks including but not limited to pain infection bleeding and anaphylaxis were explained to the patient and informed consent was obtained. The left tibiotalar joint space was localized using fluoroscopic guidance. The skin was prepped and draped in a sterile fashion. 1% lidocaine was used as a local anesthetic. Using fluoroscopic guidance a 22-gauge needle was inserted and advanced into the joint. 0.5 ml of Conray 43 was injected to verify placement. 6 ml of a solution containing 5 ml of 1% lidocaine and 1 ml of Kenalog 40 mg injected. The needle was then removed. The patient tolerated the procedure well and there were no immediate complications. Less than 6 seconds of fluoroscopy time was utilized for this procedure. Reviewed by CURT Narvaez 07/05/2018 12:58 P Electronically Signed by Darrell Nieto MD 07/05/2018 01:44 P
== END ==
LOC: M RADPRO 10:10
PROVIDERS: ATTEND Physician Assistant Medical
DX: S93.05XD Dislocation of left ankle joint, subsequent encounter (principal)
CPT/HCPCS: 20605; 77002; J3301; Q9960

== ENCOUNTER → 2018-09-01 | Outpatient (REF) | payer OTHER ==
[~2018-09-01] MED LIST changes: +ATOR80TA59 PO; -CONRAY-43 43% 50ML VIAL (Q9960) As Ordered ONE; +IMAT100TAB PO; -LIDOCAINE 1% MDV 20ML VIAL As Ordered ONE; +OMEP10CASR PO; -TRIAMCINOLONE ACETONIDE SUSP 40 MG/ML VIAL (J3301) As Ordered ONE
[2018-09-01 15:13] LABS: BASO # 0.5 10^3/uL (0.0-0.2); EOS # 0.1 10^3/uL (0.0-0.50); EOS % 1.4 % (0.0-3.0); HEMATOCRIT 40.8 % (42.0-52.0); HEMOGLOBIN 12.7 g/dl (13.5-17.5); LYMPH # 2.5 10^3/uL (1.5-4.5); LYMPH % 24.8 % (24.0-44.0); MEAN CORPUSCULAR HEMOGLOBIN 25.9 pg (27.0-33.0); MEAN CORPUSCULAR HGB CONC 31.1 g/dl (32.0-36.5); MEAN CORPUSCULAR VOLUME 83.3 fl (80.0-96.0); MONO # 0.9 10^3/uL (0.0-0.8); MONO % 9.3 % (0.0-5.0); NEUTROPHILS # 5.8 10^3/uL (1.8-7.7); NEUTROPHILS % 57.2 % (36.0-66.0); PLATELET COUNT, AUTOMATED 335 10^3/uL (150-450); WHITE BLOOD COUNT 10.1 10^3/uL (4.0-10.0)
[2018-09-01 15:20] LABS: ALBUMIN 3.8 GM/DL (3.2-5.2); ALT/SGPT 19 U/L (12-78); BILIRUBIN,TOTAL 0.4 MG/DL (0.2-1.0); BLOOD UREA NITROGEN 15 MG/DL (7-18); CALCIUM LEVEL 8.9 MG/DL (8.5-10.1); CARBON DIOXIDE LEVEL 28 MEQ/L (21-32); CHLORIDE LEVEL 104 MEQ/L (98-107); CHOLESTEROL LEVEL 163 MG/DL (<200); CREATININE FOR GFR 0.86 MG/DL (0.70-1.30); FERRITIN 37 NG/ML (26-388); GLOMERULAR FILTRATION RATE > 60.0 (>60); GLUCOSE, FASTING 95 MG/DL (70-100); HDL CHOLESTEROL 50 MG/DL (>40); IRON (FE) 35 UG/DL (65-175); LDL CHOLESTEROL 85 MG/DL (<100); NON-HDL-C 113 MG/DL; PERCENT SATURATION 8.5 % (19.7-50.0); POTASSIUM SERUM 4.7 MEQ/L (3.5-5.1); SODIUM LEVEL 140 MEQ/L (136-145); TOTAL IRON BINDING CAPACITY 410 UG/DL (250-450); TOTAL PROTEIN 7.6 GM/DL (6.4-8.2); TRIGLYCERIDES LEVEL 139 MG/DL (<150)
[2018-09-01 18:03] LABS: BASO % 4.5 % (0.0-1.0)
== END ==
LOC: M SFHCSACK 08:19
PROVIDERS: ATTEND Physician Assistant
DX: D64.9 Anemia, unspecified (principal); E78.2 Mixed hyperlipidemia

== ENCOUNTER → 2018-09-26 | Outpatient (CLI) | payer OTHER ==
[~2018-09-26] MED LIST changes: +ASPI-1 PO; +ASPI-255 PO; -ASPI325T PO; -ASPI325T25 PO; -ASPI81CH PO; +ASPI81CH49 PO
[2018-09-26 17:34] LABS: BASO # 0.3 10^3/uL (0.0-0.2); BASO % 2.7 % (0.0-1.0); EOS # 0.4 10^3/uL (0.0-0.50); EOS % 2.8 % (0.0-3.0); HEMOGLOBIN 12.6 g/dl (13.5-17.5); LYMPH # 3.1 10^3/uL (1.5-4.5); LYMPH % 25.5 % (24.0-44.0); MEAN CORPUSCULAR HGB CONC 30.7 g/dl (32.0-36.5); MEAN CORPUSCULAR VOLUME 84.5 fl (80.0-96.0); MONO # 0.8 10^3/uL (0.0-0.8); MONO % 6.5 % (0.0-5.0); NEUTROPHILS # 7.6 10^3/uL (1.8-7.7); NEUTROPHILS % 61.6 % (36.0-66.0); PLATELET COUNT, AUTOMATED 246 10^3/uL (150-450); RED BLOOD COUNT 4.85 10^6/uL (4.30-6.10); WHITE BLOOD COUNT 12.3 10^3/uL (4.0-10.0)
[2018-09-27 01:43] LABS: ERYTHROCYTE SEDIMENTATION RATE 5 mm/hr (0-15)
== END ==
LOC: M LAB 16:36
PROVIDERS: ATTEND Orthopaedic Surgery
DX: Z47.89 Encounter for other orthopedic aftercare (principal)

== ENCOUNTER 2018-09-30 11:17 | Inpatient (IN) | payer OTHER ==
[~2018-09-30] VITALS: Ht 177.8 cm; Wt 129.7 kg
[~2018-09-30 11:17] MED LIST changes: +LIDOCAINE 1% MDV 20ML VIAL SQ PRN; +LR 1,000 ML IV ONE
[2018-09-30] MEDS ORDERED: LIDOCAINE 1% MDV 20ML VIAL ONE (11:18)
[2018-09-30] MEDS ORDERED: PROPOFOL 200 MG/20 ML VIAL As Ordered ONE (11:26)
[2018-09-30] MEDS ORDERED: dexameTHASONE 4 MG/ML 1ML VIAL (J1100) As Ordered ONE (11:26)
[2018-09-30] MEDS ORDERED: LIDOCAINE 2% INJ 100 MG/5 ML SDV (FOR ANES.) As Ordered ONE (11:26)
[2018-09-30] MEDS ORDERED: ONDANSETRON 4MG/2ML VIAL (J2405) As Ordered ONE (11:26)
[2018-09-30] MEDS ORDERED: fentaNYL 100 MCG/2 ML INJECTION (J3010) As Ordered ONE ×3 (11:27→18:19)
[2018-09-30] MEDS ORDERED: MIDAZOLAM INJ 2 MG/2 ML VIAL (J2250) As Ordered ONE ×2 (11:27→12:14)
[2018-09-30] MEDS ORDERED: ACETAMINOPHEN 1000MG 100ML IV BTL (OFIRMEV) (J0131 PER 10MG) As Ordered ONE (12:05)
[2018-09-30] MEDS ORDERED: BUPIVACAINE HCL 0.25% 30 ML VIAL As Ordered ONE (12:18)
[2018-09-30] MEDS ORDERED: CARVedilol 6.25 MG TAB As Ordered ONE (12:19)
[2018-09-30] MEDS ORDERED: IPRATROPIUM 0.5MG/ALBUTEROL 2.5MG INH SOL UD 3ML (DUONEB)(J7620) As Ordered ONE (12:19)
[2018-09-30] MEDS ORDERED: IPRATROPIUM 0.5MG/ALBUTEROL 2.5MG INH SOL UD 3ML (DUONEB)(J7620) NEB ONE (12:30)
[2018-09-30] MEDS ORDERED: CARVedilol 12.5 MG TAB PO ONE (12:30)
[2018-09-30] MEDS ORDERED: NEOSTIGMINE 10 MG/10 ML VIAL (J2710) As Ordered ONE (12:53)
[2018-09-30] MEDS ORDERED: ROCURONIUM BROMIDE 50 MG/5 ML VIAL As Ordered ONE ×2 (12:53→13:47)
[2018-09-30] MEDS ORDERED: GLYCOPYRROLATE INJ 0.2 MG/ML 2 ML VIAL As Ordered ONE (12:53)
[2018-09-30] MEDS ORDERED: MIDAZOLAM INJ 2 MG/2 ML VIAL (J2250) IV ONE (13:15)
[2018-09-30] MEDS ORDERED: fentaNYL 100 MCG/2 ML INJECTION (J3010) IV ONE (13:15)
[2018-09-30] MEDS ORDERED: PHENYLephrine HCL 500 MCG/5 ML (100MCG/ML) SYRINGE (J2370) As Ordered ONE (13:29)
[2018-09-30] MEDS ORDERED: HYDROmorphone HCL 2 MG/ML 1ML VIAL (J1170) As Ordered ONE (15:04)
[2018-09-30] MEDS: PERCOCET 5MG/325MG TAB PO PRN ×2 (18:19→19:00)
[2018-09-30] MEDS ORDERED: PERCOCET 5MG/325MG TAB As Ordered ONE (18:19)
[2018-09-30] MEDS: fentaNYL 100 MCG/2 ML INJECTION (J3010) IV PRN ×4 (18:19→18:45)
[2018-09-30] MEDS ORDERED: oxyCODONE 5MG TAB PO PRN (18:30)
[2018-09-30] MEDS ORDERED: FLEET ENEMA PR PRN (18:30)
[2018-09-30] MEDS ORDERED: ONDANSETRON 4MG/2ML VIAL (J2405) IV PRN (18:30)
[2018-09-30] MEDS ORDERED: LR 1,000 ML IV SCH (18:30)
[2018-09-30] MEDS ORDERED: MORPHINE 4 MG/ML 1ML VIAL/SYRINGE (J2270) IV PRN (18:30)
[2018-09-30] MEDS: LR 1,000 ML IV SCH (18:30)
[2018-09-30 19:45] VITALS: BP 132/80
[2018-09-30 20:15] VITALS: BP 134/80
[2018-09-30] MEDS: ACETAMINOPHEN 500 MG TAB PO SCH (20:44)
[2018-09-30 21:15] VITALS: BP 140/84
[2018-09-30 22:15] VITALS: BP 134/75
[2018-09-30 23:15] VITALS: BP 141/85
[2018-09-30] MEDS: oxyCODONE 5MG TAB PO PRN (23:20)
[2018-10-01 00:15] VITALS: BP 138/78
[2018-10-01 02:00] VITALS: BP 142/83
[2018-10-01] MEDS: LR 1,000 ML IV SCH ×3 (05:27→23:45)
[2018-10-01] MEDS: ACETAMINOPHEN 500 MG TAB PO SCH ×3 (05:28→20:23)
[2018-10-01 06:00] VITALS: BP 154/73
[2018-10-01 06:41] LABS: HEMATOCRIT 37.3 % (42.0-52.0); HEMOGLOBIN 11.3 g/dl (13.5-17.5); MEAN CORPUSCULAR HEMOGLOBIN 25.7 pg (27.0-33.0); MEAN CORPUSCULAR HGB CONC 30.3 g/dl (32.0-36.5); PLATELET COUNT, AUTOMATED 212 10^3/uL (150-450); RED BLOOD COUNT 4.39 10^6/uL (4.30-6.10); WHITE BLOOD COUNT 18.9 10^3/uL (4.0-10.0)
[2018-10-01 06:49] LABS: INR 1.14; PROTHROMBIN TIME 14.8 SECONDS (12.1-14.4)
[2018-10-01 07:01] LABS: BLOOD UREA NITROGEN 11 MG/DL (7-18); CALCIUM LEVEL 8.5 MG/DL (8.5-10.1); CARBON DIOXIDE LEVEL 28 MEQ/L (21-32); CHLORIDE LEVEL 107 MEQ/L (98-107); CREATININE FOR GFR 0.78 MG/DL (0.70-1.30); GLOMERULAR FILTRATION RATE > 60.0 (>60); GLUCOSE, FASTING 113 MG/DL (70-100); POTASSIUM SERUM 4.1 MEQ/L (3.5-5.1); SODIUM LEVEL 139 MEQ/L (136-145)
[2018-10-01] MEDS ORDERED: XARE10TA PO ×2 (07:18→07:52)
[2018-10-01] MEDS: oxyCODONE 5MG TAB PO PRN ×3 (07:29→20:23)
--- NOTE | 2018-10-01 07:35 | REP ---
FLUORO GUIDANCE 19 VIEWS: HISTORY: Posttraumatic osteoarthritis. 19 radiographs were obtained with a C-arm. The patient is status post previous ORIF of a distal fibular fracture. Metal hardware is present. Sequential radiographs demonstrate the patient to be status post arthrodesis of the tibiotalar joint. A fixation plate and screws are present. There is no acute fracture or dislocation. Fluoro time 2 minutes 44 seconds. IMPRESSION: The patient is status post tibiotalar arthrodesis. There is anatomic alignment. Electronically Signed by Jaleel Thomas MD 10/01/2018 07:58 A
--- NOTE | 2018-10-01 07:49 | REP ---
LEFT ANKLE, THREE VIEWS: HISTORY: Traumatic osteoarthritis. COMPARISON: Intraoperative radiographs 09/30/2018. A plaster cast is present obscuring detail. The patient is status post previous ORIF of a fracture of the distal fibula. Metal hardware is present. The patient is status post arthrodesis of the the tibiotalar joint. A fixation plate and screws are present. There is overlying drainage tubing. There is no acute fracture or dislocation. IMPRESSION: The patient is status post arthrodesis of the tibiotalar joint. There is anatomic alignment. Electronically Signed by Jaleel Thomas MD 10/01/2018 08:18 A
[2018-10-01] MEDS ORDERED: OXYC-517 PO (07:52)
[2018-10-01] MEDS: CitaloPRAM (CeleXA) 20 MG TAB PO SCH (08:29)
[2018-10-01] MEDS: ATORVASTATIN 20 MG TAB PO SCH (08:30)
[2018-10-01] MEDS: OMEPRAZOLE 20 MG CAP PO SCH (08:30)
[2018-10-01] MEDS: CARVedilol 12.5 MG TAB PO SCH ×2 (08:31→20:26)
[2018-10-01] MEDS: buPROPion **XL** TABLET 150MG (WELLBUTRIN XL) PO SCH (08:31)
[2018-10-01] MEDS: RIVAROXABAN 10 MG TAB (XARELTO) PO SCH (08:32)
[2018-10-01] MEDS: FUROSEMIDE 40 MG TAB PO SCH (08:33)
[2018-10-01] MEDS: VITAMIN D 1,000 INTERNATIONAL UNITS TABLET PO SCH (08:36)
[2018-10-01 14:00] VITALS: BP 126/71
[2018-10-01] MEDS ORDERED: MIRALAX *UNIT DOSE* 17GM PACKET PO PRN (16:30)
[2018-10-01] MEDS ORDERED: MOM 30ML SUSPENSION UDC PO PRN (16:30)
[2018-10-01] MEDS ORDERED: rOPINIRole 0.25 MG TAB(REQUIP) PO SCH (21:00)
[2018-10-01 22:00] VITALS: BP 128/78
[2018-10-02] MEDS: oxyCODONE 5MG TAB PO PRN ×3 (03:10→12:11)
[2018-10-02] MEDS: ACETAMINOPHEN 500 MG TAB PO SCH (05:28)
[2018-10-02 06:00] VITALS: BP 134/87
[2018-10-02] MEDS ORDERED: diphenhydrAMINE 25 MG CAP PO ONE (06:00)
[2018-10-02] MEDS: VITAMIN D 1,000 INTERNATIONAL UNITS TABLET PO SCH (07:59)
[2018-10-02] MEDS: ATORVASTATIN 20 MG TAB PO SCH (07:59)
[2018-10-02] MEDS: CitaloPRAM (CeleXA) 20 MG TAB PO SCH (07:59)
[2018-10-02] MEDS: RIVAROXABAN 10 MG TAB (XARELTO) PO SCH (07:59)
[2018-10-02 08:01] VITALS: BP 134/87
[2018-10-02] MEDS: OMEPRAZOLE 20 MG CAP PO SCH (08:01)
[2018-10-02] MEDS: LR 1,000 ML IV SCH (08:01)
[2018-10-02] MEDS: buPROPion **XL** TABLET 150MG (WELLBUTRIN XL) PO SCH (08:01)
[2018-10-02] MEDS: FUROSEMIDE 40 MG TAB PO SCH (08:01)
[2018-10-02] MEDS: CARVedilol 12.5 MG TAB PO SCH (08:01)
--- NOTE | 2018-10-04 22:05 | RO ---
DATE OF PROCEDURE: 09/30/2018 PREPROCEDURE DIAGNOSIS: Left posttraumatic tibiotalar joint arthritis. POSTPROCEDURE DIAGNOSIS: Left posttraumatic tibiotalar joint arthritis. PROCEDURE: SURGEON: Katina Parker MD ASSISTANTS: Dean Reed MD and GUNNAR Smith ANESTHESIA: General endotracheal, popliteal nerve block. ESTIMATED BLOOD LOSS: 150 mL. SPECIMENS: Tibiotalar joint bone specimens times three. DRAINS: Yves Goyal (ILENE) times one. IMPLANTS: Arthrex anterior ankle fusion plate and with associated screws and one 6.7 mm lag screw. COMPLICATIONS: None. CONDITION: Stable to recovery. INDICATIONS: Darrell Lyons is a 48-year-old male who has significant pain and difficulties with ambulation due to posttraumatic arthritis in his tibiotalar joint. He has failed conservative measures. The patient has elected for ankle fusion. He does have a recent diagnosis of CML and is on Gleevec. I personally spoke with both his oncologist and his primary care provider. They feel it is still safe to do the surgery. The patient understands he is at an increased risk of having either a wound infection or nonunion given his current health status. He is accepting of this. Other risks and benefits were also discussed with the patient and include but are not limited to infection, damage to nerves and blood vessels, continued pain and stiffness, need for additional procedures, blood clot. Informed consent was obtained in the office. DESCRIPTION OF PROCEDURE: The patient was met in the holding area where the left lower extremity was marked as the correct operative side. He underwent a nerve block by the anesthesia team. He was then taken to the operating room where he was placed in the supine position on the operating room table. Bony prominences were well padded. He underwent general anesthesia. A well-padded tourniquet was placed on the left upper thigh. A bump was placed under the ipsilateral hip. Chlorhexidine scrub was performed to the left lower extremity. Antibiotics were given within 60 minutes prior to incision. An official time-out was held where the correct patient, operative site, and operative procedure were verified. Appropriate images were displayed in the operating room. After a time-out was held, attention was directed to the fibula. The syndesmotic screws were identified using fluoroscopic guidance. A small incision was made directly over the two syndesmotic screws. Blunt dissection was performed at the level of fibula and plate. The two screws were removed without difficulty. They were both found to be loose. This wound was irrigated and closed using #3-0 Vicryl and #3-0 nylon. At this point, the leg was exsanguinated using a 6-inch Esmarch. Tourniquet was inflated to 250 mmHg. It was up for approximately 150 minutes. An incision was made directly anterior over the tibiotalar joint. The superficial peroneal nerve was identified and retracted laterally. Retinaculum was incised. The extensor hallucis longus (EHL) and tibialis anterior (tib ant) were identified and interval was developed between the two muscles. The neurovascular bundle was retracted laterally by Rhoda Frank. She protected the bundle throughout the entirety of the case, which was very important to have adequate exposure. The capsule was incised, and the tibiotalar joint was approached. It was found to be severely arthritic. There was very minimal cartilage left in the joint, and there was mostly sclerotic bone. There was no evidence of a growth infection. I did, however, send three samples of bone for culture and gram stain given the patient has had prior surgery to the ankle before. Following joint exposure, I spent a significant amount of time preparing the ankle joint. This involved using curettes and osteotomes to debride all remaining cartilage. The subchondral bone was penetrated using a 2.0 drill and the bone was fenestrated using a Schley osteotome. As I was preparing the joint, Dr. Reed obtained the proximal tibial bone graft. This was done with a small incision on the lateral portion of the knee. The anterior compartment was elevated and an approximately 1 x 1 window was created in the region of Gerdy's tubercle. This had been confirmed with fluoroscopic guidance using C-arm. Approximately 5 mL of cancellous bone graft was obtained using a curette. Anterior compartment was then repaired using #0 Vicryl. Copious irrigation was performed. Ultimately, this wound was closed using #3-0 Vicryl and #3-0 nylon. After the bone graft was obtained, this was mixed with a small amount of cortical chips as well. This was placed into the tibiotalar joint after it had been copiously irrigated. There were a couple of small area defects which were filled and a small gap in the region of the medial malleolus, which was filled with bone graft. Otherwise care was taken to not place too much bone graft in the joint. After bone graft was placed, I performed a reduction of the tibiotalar joint. I did place the ankle in about 5 degrees of valgus and neutral dorsiflexion. This was confirmed on AP, lateral, and mortise views using C-arm. This was pinned in place with two 2.0 pins. Reduction was found to be satisfactory on the fluoroscopic films. I then proceeded with placement of the Arthrex anterior tibial fusion plate. I did find that the patient had quite a short talus. I did attempt to bur down the anterior aspect of the tibia and this did help bring the plate slightly more posterior. There was, however, still slight overhang into the talonavicular joint. I did not place the two distal screws for this reason. I did feel that it was necessary to use the plate as the patient is already at an increased risk of nonunion, and I was not comfortable using only two screws for my fixation. Before the plate had been placed, I did place a 6.7 mm cannulated lag screw across the tibiotalar joint with a poke hole in the medial aspect of the tibia. This confirmed placement on this on AP and lateral views using the C-arm. Once I was satisfied with the lag screw and plate placement, I secured the plate distally with the talar screws, using one cortical screw to help suck the plate down and then a locking screw. Following this, I used the eccentric hole in the plate to get further compression across the plate. This did give nice compression. I then placed the home-run screw across the tibiotalar joint. Remaining screw holes were filled as deemed necessary. At this point, tourniquet was let down and hemostasis was maintained. Capsule was closed over the distal aspect of the plate. A drain was then placed exiting the skin medially. Retinaculum was then closed using #2-0 Vicryl. Soft tissues were further closed using #3-0 Vicryl and #3-0 nylon. A sterile dressing was applied in addition to a well-padded splint. The patient was extubated and transferred to the recovery room in stable condition. Both Dr. Reed and Rhoda Frank were essential for help with soft tissue retraction, hardware placement, and overall decrease in tourniquet time. PLAN: The patient will be non-weightbearing for 2 months. We will see him back in 1 week for a wound check. He will be on Eliquis for deep vein thrombosis (DVT) prophylaxis and will receive 24 hours of intravenous (IV) antibiotics. He will undergo strict elevation of the leg.
--- NOTE | 2018-10-06 14:27 | DSES ---
DATE OF ADMISSION: 09/30/2018 DATE OF DISCHARGE: 10/02/2018 ATTENDING PHYSICIAN: Dr. Katina Parker ADMISSION DIAGNOSIS: Left post-traumatic tibiotalar joint arthritis. OTHER DIAGNOSES: 1. Hyperlipidemia. 2. Hypertension. 3. History of myocardial infarction. 4. Gastroesophageal reflux disease. 5. Anxiety. 6. Fatty liver. 7. Left ankle fracture. 8. Facial and nasal fracture. 9. Right hip fracture. 10. Obstructive sleep apnea on C-PAP. 11. Coronary artery disease. 12. Chronic myelocytic leukemia. DISCHARGE DIAGNOSIS: Left tibiotalar joint post-traumatic arthritis status post left ankle arthrodesis with left proximal tibia bone graft. HISTORY: The patient is a 48-year-old male that has post-traumatic tibiotalar osteoarthritis status post left ankle fracture/dislocation in May 2017. The patient had an open reduction internal fixation of this fracture, but was noncompliant status post surgery. He developed severe tibiotalar osteoarthritis. The patient was continuing to have symptoms with weightbearing activities and activities of daily living despite conservative measures. He had consented for an elective left ankle arthrodesis at the tibiotalar joint with a left proximal tibia bone graft. OPERATION PERFORMED: Left tibiotalar arthrodesis with a left proximal tibia bone graft. HOSPITAL COURSE: The patient underwent a left ankle arthrodesis with a proximal tibia bone graft under general anesthesia with popliteal nerve block. Surgery was uneventful and his hospital course was without complication. The patient was discharged on oral pain medications and will resume his preoperative medications and diet. He will be non-weightbearing for 2 months. He will be on Eliquis for deep venous thrombosis prophylaxis. He will also undergo strict elevation of the left leg. The patient will follow up in our office in 2 weeks or sooner if there is any increase in symptoms to include, but not limited to pain, drainage, numbness and tingling in the extremity, redness, calf pain, fever greater than 101 degrees or any other concerns. Please see medical record for additional details. LILA
== END 2018-10-02 12:20 | disposition home or self-care (01) | DRG 313 ==
LOC: M SDC 11:17 → EDSTATUS 12:30 → M OR 18:00 → M MS5PR 19:42
PROVIDERS: ADMIT Orthopaedic Surgery; ATTEND Orthopaedic Surgery
PROC: 0QHH04Z Insertion of Internal Fixation Device into Left Tibia, Open Approach (ICD-10-PCS; principal; 2018-09-30 12:30)
DX: M19.172 Post-traumatic osteoarthritis, left ankle and foot (principal); E78.5 Hyperlipidemia, unspecified; I10 Essential (primary) hypertension; I25.2 Old myocardial infarction; K21.9 Gastro-esophageal reflux disease without esophagitis; F41.9 Anxiety disorder, unspecified; G47.33 Obstructive sleep apnea (adult) (pediatric); I25.10 Atherosclerotic heart disease of native coronary artery without angina pectoris; C93.10 Chronic myelomonocytic leukemia not having achieved remission; Z91.19 Patient's noncompliance with other medical treatment and regimen

== ENCOUNTER → 2018-12-20 | Outpatient (CLI) | payer OTHER ==
[~2018-12-20] MED LIST changes: -LIDOCAINE 1% MDV 20ML VIAL SQ PRN; -LR 1,000 ML IV ONE; -MELA5TAB17 PO; +MELA5TAB31 PO; +OXYC-517 PO; +XARE10TA PO
[2018-12-20 16:46] LABS: BASO % 0.5 % (0.0-1.0); EOS # 0.4 10^3/uL (0.0-0.50); EOS % 5.1 % (0.0-3.0); HEMATOCRIT 37.6 % (42.0-52.0); HEMOGLOBIN 12.2 g/dl (13.5-17.5); LYMPH % 38.4 % (24.0-44.0); MEAN CORPUSCULAR HEMOGLOBIN 27.6 pg (27.0-33.0); MEAN CORPUSCULAR HGB CONC 32.4 g/dl (32.0-36.5); MEAN CORPUSCULAR VOLUME 85.1 fl (80.0-96.0); MONO # 0.7 10^3/uL (0.0-0.8); MONO % 8.7 % (0.0-5.0); NEUTROPHILS # 3.7 10^3/uL (1.8-7.7); PLATELET COUNT, AUTOMATED 194 10^3/uL (150-450); RED BLOOD COUNT 4.42 10^6/uL (4.30-6.10); WHITE BLOOD COUNT 7.8 10^3/uL (4.0-10.0)
[2018-12-20 17:06] LABS: ERYTHROCYTE SEDIMENTATION RATE 9 mm/hr (0-15)
== END ==
LOC: M WUC 15:02
PROVIDERS: ATTEND Orthopaedic Surgery
DX: Z47.89 Encounter for other orthopedic aftercare (principal)

== ENCOUNTER → 2018-12-20 | Outpatient (CLI) | payer OTHER ==
[2018-12-20 17:11] LABS: ALBUMIN 3.6 GM/DL (3.2-5.2); BILIRUBIN,DIRECT 0.1 MG/DL (0.0-0.2); BILIRUBIN,TOTAL 0.5 MG/DL (0.2-1.0); TOTAL PROTEIN 6.9 GM/DL (6.4-8.2)
== END ==
LOC: M WUC 15:07
PROVIDERS: ATTEND Internal Medicine Gastroenterology
DX: R94.5 Abnormal results of liver function studies (principal)

== ENCOUNTER → 2019-03-20 | Outpatient (REF) | payer OTHER ==
[~2019-03-20] MED LIST changes: -LISI20TA PO; +LISI20TA19 PO; -MELA3TAB PO; +MELA3TAB63 PO
[2019-03-20 14:55] LABS: BASO # 0.1 10^3/uL (0.0-0.2); BASO % 0.7 % (0.0-1.0); EOS # 0.4 10^3/uL (0.0-0.5); EOS % 4.9 % (0.0-3.0); HEMOGLOBIN 13.3 g/dl (13.5-17.5); LYMPH # 2.6 10^3/uL (1.5-5.0); LYMPH % 35.6 % (24.0-44.0); MEAN CORPUSCULAR HGB CONC 32.4 g/dl (32.0-36.5); MEAN CORPUSCULAR VOLUME 92.3 fl (80.0-96.0); MONO # 0.5 10^3/uL (0.0-0.8); MONO % 7.3 % (0.0-5.0); NEUTROPHILS # 3.7 10^3/uL (1.5-8.5); NEUTROPHILS % 51.4 % (36.0-66.0); PLATELET COUNT, AUTOMATED 213 10^3/uL (150-450); RED BLOOD COUNT 4.44 10^6/uL (4.30-6.10); WHITE BLOOD COUNT 7.3 10^3/uL (4.0-10.0)
[2019-03-20 15:30] LABS: ALBUMIN 3.9 GM/DL (3.2-5.2); ALT/SGPT 27 U/L (12-78); BILIRUBIN,TOTAL 0.3 MG/DL (0.2-1.0); BLOOD UREA NITROGEN 17 MG/DL (7-18); CALCIUM LEVEL 8.9 MG/DL (8.5-10.1); CARBON DIOXIDE LEVEL 30 MEQ/L (21-32); CHLORIDE LEVEL 105 MEQ/L (98-107); CHOLESTEROL LEVEL 152 MG/DL (<200); CHOLESTEROL RISK RATIO 2.412 (<5); CREATININE FOR GFR 0.91 MG/DL (0.70-1.30); FREE T4 0.81 NG/DL (0.76-1.46); GLOMERULAR FILTRATION RATE > 60.0 (>56); GLUCOSE, FASTING 101 MG/DL (70-100); HDL CHOLESTEROL 63 MG/DL (>40); LDL CHOLESTEROL 70 MG/DL (<100); NON-HDL-C 89 MG/DL; POTASSIUM SERUM 4.7 MEQ/L (3.5-5.1); SODIUM LEVEL 140 MEQ/L (136-145); TOTAL PROTEIN 7.1 GM/DL (6.4-8.2); TRIGLYCERIDES LEVEL 97 MG/DL (<150)
== END ==
LOC: M SFHCSACK 09:06
PROVIDERS: ATTEND Physician Assistant
DX: Z13.29 Encounter for screening for other suspected endocrine disorder (principal); C92.10 Chronic myeloid leukemia, BCR/ABL-positive, not having achieved remission; E78.2 Mixed hyperlipidemia

== ENCOUNTER → 2019-05-17 | Outpatient (CLI) | payer OTHER ==
[~2019-05-17] MED LIST changes: -SIMV40TA2 PO; +SIMV40TA20 PO
[2019-05-17 14:39] LABS: BASO % 0.5 % (0.0-1.0); EOS # 0.2 10^3/uL (0.0-0.5); EOS % 3.4 % (0.0-3.0); HEMATOCRIT 39.2 % (42.0-52.0); HEMOGLOBIN 12.6 g/dl (13.5-17.5); LYMPH # 2.2 10^3/uL (1.5-5.0); LYMPH % 36.2 % (24.0-44.0); MEAN CORPUSCULAR HEMOGLOBIN 29.9 pg (27.0-33.0); MEAN CORPUSCULAR HGB CONC 32.1 g/dl (32.0-36.5); MEAN CORPUSCULAR VOLUME 93.1 fl (80.0-96.0); MONO # 0.7 10^3/uL (0.0-0.8); MONO % 10.8 % (0.0-5.0); NEUTROPHILS % 48.6 % (36.0-66.0); PLATELET COUNT, AUTOMATED 209 10^3/uL (150-450); RED BLOOD COUNT 4.21 10^6/uL (4.30-6.10); WHITE BLOOD COUNT 6.1 10^3/uL (4.0-10.0)
[2019-05-17 14:49] LABS: ALBUMIN 3.9 GM/DL (3.2-5.2); BILIRUBIN,DIRECT 0.1 MG/DL (0.0-0.2); BILIRUBIN,TOTAL 0.4 MG/DL (0.2-1.0); PERCENT SATURATION 23.4 % (19.7-50.0)
[2019-05-19 08:41] LABS: TISSUE TRANSGLUTAMINASE IgA <2 U/mL (0-3); UNITSIGA FOR GLIADIN IGA 4 units (0-19); UNITSIGG FOR GLIADIN IGG 4 units (0-19)
== END ==
LOC: M SACK 09:43
PROVIDERS: ATTEND Internal Medicine Gastroenterology
DX: K75.81 Nonalcoholic steatohepatitis (NASH) (principal)

== ENCOUNTER → 2019-05-24 | Outpatient (CLI) | payer OTHER ==
--- NOTE | 2019-05-24 12:43 | REP ---
CT LEFT ANKLE: Axial CT left ankle performed with sagittal and coronal reconstruction images. Comparison 09/30/2018. There is evidence of prior arthrodesis infusion at the tibiotalar joint. Anterior metallic plate bridges the anterior tibial talar joint. Metallic screws bridge the tibiotalar joint posteriorly. The plate is fixed by multiple screws in the distal tibia and in the talus. Two old screw holes are seen in the distal tibia. Two metallic plates are seen along with multiple metallic screws fixating distal fibular fracture. The fibular fracture is essentially healed. Bony bridging is seen at the tibiotalar joint predominantly anteriorly. There is some thin residual lucency predominantly along the posterior aspect of the tibiotalar joint. Undulating callus formation is seen along the posterior malleolus as well as along the medial cortex of the distal fibula and lateral cortex of the distal tibia. A few subcentimeter soft tissue calcifications are seen anterior to the inferior aspect of the anterior tibiotalar fusion plate. Talocalcaneal joint is intact and unremarkable. Tiny calcaneal spurs are seen posteriorly and inferiorly. Evaluation of the surrounding soft tissue structures is limited by the metallic fixation, but appear grossly unremarkable. Electronically Signed by Darrell Nieto MD 05/24/2019 08:00 P
== END ==
LOC: M RAD 10:47
PROVIDERS: ATTEND Orthopaedic Surgery
DX: M19.172 Post-traumatic osteoarthritis, left ankle and foot (principal); S82.62XD Displaced fracture of lateral malleolus of left fibula, subsequent encounter for closed fracture with routine healing; S93.05XD Dislocation of left ankle joint, subsequent encounter; X58.XXXD Exposure to other specified factors, subsequent encounter

== ENCOUNTER 2019-09-01 18:02 | Emergency (ER) | payer OTHER ==
[~2019-09-01] VITALS: Ht 180.3 cm; Wt 125.0 kg
[~2019-09-01 18:02] MED LIST changes: -ROPI0.5T PO; +ROPI0.5T3 PO
[2019-09-01] MEDS ORDERED: LORazepam 2 MG TAB PO ONE (18:15)
[2019-09-01] MEDS ORDERED: NICOTINE 21MG/24HR 1 EA TRANSDERMAL TD ONE (18:15)
[2019-09-01] MEDS ORDERED: NS 1,000 ML IV ONE (18:30)
[2019-09-01] MEDS ORDERED: PANTOPRAZOLE SODIUM 40 MG in D5W 50 ML IV SCH (18:30)
[2019-09-01] MEDS ORDERED: PANTOPRAZOLE 40MG INJ (PROTONIX) (C9113) IV ONE (18:30)
[2019-09-01] MEDS ORDERED: GABA600T4 PO (18:33)
[2019-09-01] MEDS ORDERED: OMEP-221 PO (18:33)
[2019-09-01] MEDS ORDERED: ENOX40IN3 INJ (18:33)
[2019-09-01 19:02] LABS: BASO # 0.1 10^3/uL (0.0-0.2); BASO % 0.5 % (0.0-1.0); EOS # 0.2 10^3/uL (0.0-0.5); EOS % 1.6 % (0.0-3.0); HEMATOCRIT 31.6 % (42.0-52.0); HEMOGLOBIN 10.6 g/dl (13.5-17.5); LYMPH # 2.5 10^3/uL (1.5-5.0); LYMPH % 24.5 % (24.0-44.0); MEAN CORPUSCULAR HEMOGLOBIN 30.2 pg (27.0-33.0); MEAN CORPUSCULAR HGB CONC 33.5 g/dl (32.0-36.5); MONO # 0.8 10^3/uL (0.0-0.8); MONO % 7.9 % (0.0-5.0); NEUTROPHILS # 6.5 10^3/uL (1.5-8.5); NEUTROPHILS % 64.9 % (36.0-66.0); PLATELET COUNT, AUTOMATED 251 10^3/uL (150-450); RED BLOOD COUNT 3.51 10^6/uL (4.30-6.10)
[2019-09-01 19:26] LABS: CK-MB VALUE MASS 1.4 NG/ML (<3.6); CPK CREATINE PHOSPHOKINASE 137 U/L (39-308); MB/CK RELATIVE INDEX 1.02 (< OR =4); TROPONIN I < 0.02 NG/ML (< 0.10)
[2019-09-01] MEDS ORDERED: NITR4TASL SL (20:20)
[2019-09-01] MEDS ORDERED: WELLTAB40 PO (20:20)
[2019-09-01] MEDS ORDERED: ACET-907 PO (20:20)
[2019-09-01] MEDS ORDERED: FLINCHW2 PO (20:20)
[2019-09-01] MEDS ORDERED: VENTAER INH (20:20)
[2019-09-01] MEDS ORDERED: ATOR40TA75 PO (20:20)
[2019-09-01] MEDS ORDERED: VITA50005 PO (20:20)
[2019-09-01] MEDS ORDERED: VITA500T40 PO (20:20)
[2019-09-01] MEDS ORDERED: LISI-538 PO (20:20)
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
--- NOTE | 2019-09-01 21:02 | REP ---
Clinical: Dizziness . Comparison: 05/30/2017 . Findings: The mediastinum and cardiac silhouette are stable and within normal limits for portable technique. The lung delgado are clear without acute consolidation, effusion, or pneumothorax. Skeletal structures are intact. Impression: No acute cardiopulmonary process appreciated. Electronically Signed by Andrew Monte MD 09/01/2019 08:54 P
[2019-09-01 22:21] VITALS: BP 125/65
--- NOTE | 2019-09-02 08:44 | ECGEPIP ---
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
== END 2019-09-01 23:15 | disposition short-term general hospital (02) ==
LOC: M ED 18:02
DX: K92.2 Gastrointestinal hemorrhage, unspecified (principal); R42 Dizziness and giddiness; Z98.84 Bariatric surgery status; Z85.6 Personal history of leukemia; I25.2 Old myocardial infarction; I11.9 Hypertensive heart disease without heart failure; E78.5 Hyperlipidemia, unspecified; G47.30 Sleep apnea, unspecified; K21.9 Gastro-esophageal reflux disease without esophagitis; Z87.891 Personal history of nicotine dependence; Z95.5 Presence of coronary angioplasty implant and graft; Z88.1 Allergy status to other antibiotic agents
CPT/HCPCS: 71045; 80047; 82550; 82553; 85025; 86850; 86900; 86901; 93005; 93041; 94760; 99285; C9113

== ENCOUNTER → 2019-09-26 | Outpatient (CLI) | payer OTHER ==
[~2019-09-26] MED LIST changes: +ACET-907 PO; +ATOR40TA75 PO; +ENOX40IN3 INJ; +FLINCHW2 PO; +LISI-538 PO; +NITR4TASL SL; +OMEP-221 PO; +OXYC-1 PO; -OXYC15TA76 PO; +VENTAER INH; +VITA50005 PO; +VITA500T40 PO; +WELLTAB40 PO
[2019-09-26 15:44] LABS: ALBUMIN 3.7 GM/DL (3.2-5.2); ALT/SGPT 28 U/L (12-78); BILIRUBIN,TOTAL 0.5 MG/DL (0.2-1.0); BLOOD UREA NITROGEN 5 MG/DL (7-18); CALCIUM LEVEL 8.6 MG/DL (8.5-10.1); CARBON DIOXIDE LEVEL 25 MEQ/L (21-32); CHLORIDE LEVEL 111 MEQ/L (98-107); CHOLESTEROL LEVEL 113 MG/DL (<200); CHOLESTEROL RISK RATIO 2.173 (<5); CREATININE FOR GFR 0.88 MG/DL (0.70-1.30); GLOMERULAR FILTRATION RATE > 60.0 (>56); GLUCOSE, FASTING 84 MG/DL (70-100); HDL CHOLESTEROL 52 MG/DL (>40); LDL CHOLESTEROL 45 MG/DL (<100); NON-HDL-C 61 MG/DL; POTASSIUM SERUM 3.9 MEQ/L (3.5-5.1); SODIUM LEVEL 143 MEQ/L (136-145); TOTAL PROTEIN 6.9 GM/DL (6.4-8.2); TRIGLYCERIDES LEVEL 79 MG/DL (<150)
[2019-09-26 15:47] LABS: BASO % 0.6 % (0.0-1.0); EOS # 0.1 10^3/uL (0.0-0.5); EOS % 2.5 % (0.0-3.0); HEMATOCRIT 35.8 % (42.0-52.0); HEMOGLOBIN 11.7 g/dl (13.5-17.5); LYMPH # 1.8 10^3/uL (1.5-5.0); LYMPH % 37.8 % (24.0-44.0); MEAN CORPUSCULAR HEMOGLOBIN 30.2 pg (27.0-33.0); MEAN CORPUSCULAR HGB CONC 32.7 g/dl (32.0-36.5); MEAN CORPUSCULAR VOLUME 92.5 fl (80.0-96.0); MONO # 0.4 10^3/uL (0.0-0.8); MONO % 8.9 % (0.0-5.0); NEUTROPHILS # 2.4 10^3/uL (1.5-8.5); NEUTROPHILS % 49.8 % (36.0-66.0); PLATELET COUNT, AUTOMATED 206 10^3/uL (150-450); RED BLOOD COUNT 3.87 10^6/uL (4.30-6.10); WHITE BLOOD COUNT 4.7 10^3/uL (4.0-10.0)
[2019-09-26 15:53] LABS: TOTAL 25(OH) VITAMIN D 79.4 NG/ML (30.0-100.0)
== END ==
LOC: M WUC 13:46
PROVIDERS: ATTEND Physician Assistant
DX: K21.9 Gastro-esophageal reflux disease without esophagitis (principal); R73.01 Impaired fasting glucose; E78.2 Mixed hyperlipidemia; E55.9 Vitamin D deficiency, unspecified

== ENCOUNTER → 2020-11-20 | Outpatient (REF) | payer OTHER ==
[~2020-11-20] MED LIST changes: +BUPR150T12 PO; -BUPR150T3 PO; -LISI-538 PO; -LISI20TA19 PO; +LISI20TA33 PO; +LISI20TA35 PO; -MELA3TAB63 PO; +MELA3TAB70 PO; -MELA5TAB31 PO; +MELA5TAB36 PO
[2020-11-20 14:32] LABS: BASO % 0.5 % (0.0-1.0); EOS # 0.1 10^3/uL (0.0-0.5); EOS % 1.6 % (0.0-3.0); HEMATOCRIT 37.5 % (42.0-52.0); HEMOGLOBIN 12.2 g/dl (13.5-17.5); LYMPH % 31.8 % (24.0-44.0); MEAN CORPUSCULAR HGB CONC 32.5 g/dl (32.0-36.5); MEAN CORPUSCULAR VOLUME 95.4 fl (80.0-96.0); MONO # 0.6 10^3/uL (0.0-0.8); MONO % 9.4 % (2.0-8.0); NEUTROPHILS # 3.5 10^3/uL (1.5-8.5); NEUTROPHILS % 56.4 % (36.0-66.0); PLATELET COUNT, AUTOMATED 212 10^3/uL (150-450); RED BLOOD COUNT 3.93 10^6/uL (4.30-6.10); WHITE BLOOD COUNT 6.2 10^3/uL (4.0-10.0)
[2020-11-20 14:48] LABS: ALBUMIN 3.5 GM/DL (3.2-5.2); ALT/SGPT 19 U/L (12-78); BILIRUBIN,TOTAL 0.5 MG/DL (0.2-1.0); BLOOD UREA NITROGEN 7 MG/DL (7-18); CALCIUM LEVEL 8.5 MG/DL (8.5-10.1); CARBON DIOXIDE LEVEL 33 MEQ/L (21-32); CHLORIDE LEVEL 108 MEQ/L (98-107); CHOLESTEROL LEVEL 162 MG/DL (<200); CHOLESTEROL RISK RATIO 1.862 (<5); CREATININE FOR GFR 0.76 MG/DL (0.70-1.30); GLOMERULAR FILTRATION RATE > 60.0 (>56); GLUCOSE, FASTING 93 MG/DL (70-100); HDL CHOLESTEROL 87 MG/DL (>40); IRON (FE) 118 UG/DL (65-175); LDL CHOLESTEROL 56 MG/DL (<100); NON-HDL-C 75 MG/DL; POTASSIUM SERUM 3.8 MEQ/L (3.5-5.1); SODIUM LEVEL 142 MEQ/L (136-145); TOTAL PROTEIN 6.4 GM/DL (6.4-8.2); TRIGLYCERIDES LEVEL 94 MG/DL (<150)
[2020-11-20 14:56] LABS: TOTAL 25(OH) VITAMIN D 27.4 NG/ML (30.0-100.0); VITAMIN B12 LEVEL 764 PG/ML
[2020-11-20 14:57] LABS: FOLATE 16.2 NG/ML
== END ==
LOC: M SFHCPLAZ 09:55
PROVIDERS: ATTEND Physician Assistant
DX: I11.0 Hypertensive heart disease with heart failure (principal); Z98.84 Bariatric surgery status; E78.2 Mixed hyperlipidemia

== ENCOUNTER → 2020-12-23 | Outpatient (CLI) | payer OTHER ==
[~2020-12-23] MED LIST changes: +ERGO500029 PO; -VITA50005 PO
== END ==
LOC: M SLEEP HO 14:52
PROVIDERS: ATTEND Nurse Practitioner Family
DX: G47.33 Obstructive sleep apnea (adult) (pediatric) (principal)

== ENCOUNTER 2021-07-09 14:34 | Emergency (ER) | payer MEDICARE, OTHER ==
[~2021-07-09] VITALS: Ht 180.3 cm; Wt 89.6 kg
[~2021-07-09 14:34] MED LIST changes: -OMEP-221 PO; +OMEP40CA5 PO
[2021-07-09 14:35] VITALS: BP 165/88
[2021-07-09 16:39] LABS: BASO % 0.5 % (0.0-1.0); EOS # 0.2 10^3/uL (0.0-0.5); EOS % 2.3 % (0.0-3.0); LYMPH # 1.9 10^3/uL (1.5-5.0); LYMPH % 23.7 % (24.0-44.0); MEAN CORPUSCULAR HEMOGLOBIN 32.7 pg (27.0-33.0); MEAN CORPUSCULAR HGB CONC 34.3 g/dl (32.0-36.5); MEAN CORPUSCULAR VOLUME 95.4 fl (80.0-96.0); MONO # 0.7 10^3/uL (0.0-0.8); MONO % 8.1 % (2.0-8.0); NEUTROPHILS # 5.3 10^3/uL (1.5-8.5); NEUTROPHILS % 65.2 % (36.0-66.0); PLATELET COUNT, AUTOMATED 228 10^3/uL (150-450); RED BLOOD COUNT 3.67 10^6/uL (4.30-6.10); WHITE BLOOD COUNT 8.1 10^3/uL (4.0-10.0)
[2021-07-09 16:52] LABS: PARTIAL THROMBOPLASTIN TIME 26.5 SECONDS (25.9-37.0); PROTHROMBIN TIME 13.6 SECONDS (12.7-14.5)
[2021-07-09 16:55] LABS: D-DIMER QUANT 510.32 ng/ml (<500)
[2021-07-09 17:05] LABS: BLOOD UREA NITROGEN 7 MG/DL (7-18); CALCIUM LEVEL 8.8 MG/DL (8.5-10.1); CARBON DIOXIDE LEVEL 30 MEQ/L (21-32); CHLORIDE LEVEL 104 MEQ/L (98-107); CREATININE FOR GFR 0.76 MG/DL (0.70-1.30); GLOMERULAR FILTRATION RATE > 60.0 (>56); GLUCOSE, FASTING 81 MG/DL (70-100); POTASSIUM SERUM 3.9 MEQ/L (3.5-5.1); SODIUM LEVEL 141 MEQ/L (136-145)
== END 2021-07-09 18:06 | disposition home or self-care (01) ==
LOC: M ED 14:34
DX: S50.11XA Contusion of right forearm, initial encounter (principal); I25.2 Old myocardial infarction; F10.10 Alcohol abuse, uncomplicated; Z88.1 Allergy status to other antibiotic agents; Z95.5 Presence of coronary angioplasty implant and graft; Y92.009 Unspecified place in unspecified non-institutional (private) residence as the place of occurrence of the external cause; Y93.9 Activity, unspecified; Y99.9 Unspecified external cause status

== ENCOUNTER → 2021-07-18 | Outpatient (CLI) | payer MEDICARE, OTHER | LOC: M RAD 13:43 | PROVIDERS: ATTEND Physician Assistant | DX: M79.631 Pain in right forearm (principal); M25.521 Pain in right elbow ==

== ENCOUNTER 2021-10-19 06:13 | Inpatient (IN) | payer MEDICARE, OTHER ==
[2021-10-19] VITALS (7 sets, daily range): BP systolic 136–161; BP diastolic 80–95
[~2021-10-19] VITALS: Ht 177.8 cm; Wt 86.6 kg
[2021-10-19] MEDS ORDERED: ACETAMINOPHEN TAB 650MG DOSE (2X325MG) PO ONE (06:45)
[2021-10-19 07:11] LABS: BASO # 0.1 10^3/uL (0.0-0.2); BASO % 0.4 % (0.0-1.0); EOS # 0.1 10^3/uL (0.0-0.5); EOS % 0.6 % (0.0-3.0); HEMATOCRIT 38.5 % (42.0-52.0); HEMOGLOBIN 13.1 g/dl (13.5-17.5); LYMPH # 1.6 10^3/uL (1.5-5.0); LYMPH % 13.8 % (24.0-44.0); MEAN CORPUSCULAR HEMOGLOBIN 32.2 pg (27.0-33.0); MEAN CORPUSCULAR VOLUME 94.6 fl (80.0-96.0); MONO # 0.8 10^3/uL (0.0-0.8); MONO % 6.9 % (2.0-8.0); NEUTROPHILS # 8.8 10^3/uL (1.5-8.5); NEUTROPHILS % 77.9 % (36.0-66.0); PLATELET COUNT, AUTOMATED 213 10^3/uL (150-450); RED BLOOD COUNT 4.07 10^6/uL (4.30-6.10); WHITE BLOOD COUNT 11.3 10^3/uL (4.0-10.0)
[2021-10-19 07:20] LABS: ALBUMIN 3.7 GM/DL (3.2-5.2); ALT/SGPT 31 U/L (12-78); BILIRUBIN,TOTAL 0.5 MG/DL (0.2-1.0); BLOOD UREA NITROGEN 5 MG/DL (7-18); CALCIUM LEVEL 9.1 MG/DL (8.5-10.1); CARBON DIOXIDE LEVEL 28 MEQ/L (21-32); CHLORIDE LEVEL 105 MEQ/L (98-107); CREATININE FOR GFR 0.89 MG/DL (0.70-1.30); GLOMERULAR FILTRATION RATE > 60.0 (>56); GLUCOSE, FASTING 108 MG/DL (70-100); POTASSIUM SERUM 3.4 MEQ/L (3.5-5.1); SODIUM LEVEL 139 MEQ/L (136-145); TOTAL PROTEIN 7.9 GM/DL (6.4-8.2)
[2021-10-19 07:22] LABS: CK-MB VALUE MASS 2.2 NG/ML (<3.6); MB/CK RELATIVE INDEX 0.65 (< OR =4)
[2021-10-19] MEDS ORDERED: AMPICILLIN SOD/SULBACTAM SOD 3 GM in D5W MINI-BAG PLUS 100 ML IV ONE (07:30)
[2021-10-19] MEDS ORDERED: NS 2,550 ML in IV 1 EA IV ONE (07:30)
[2021-10-19] MEDS ORDERED: IBUPROFEN 800 MG TAB PO ONE (08:35)
[2021-10-19 09:21] LABS: CK-MB VALUE MASS 1.6 NG/ML (<3.6); MB/CK RELATIVE INDEX 0.64 (< OR =4)
[2021-10-19] MEDS ORDERED: PROP10TA56 PO (12:09)
[2021-10-19] MEDS ORDERED: MULT-90 PO (12:09)
[2021-10-19] MEDS ORDERED: IMAT400T PO (12:09)
[2021-10-19] MEDS ORDERED: HOME MED LIST COMPLETE! XX SCH (12:10)
[2021-10-19] MEDS ORDERED: MAALOX 30 ML SUSP *UDC PO PRN (13:15)
[2021-10-19] MEDS ORDERED: TETANUS/DIPHTHERIA TOX ADSORB ADULT 0.5ML SYR/VIAL (90714) IM ONE (14:00)
[2021-10-19] MEDS ORDERED: ALBUTEROL 90 MCG/ACT 8GM HFA INHALER INH PRN (14:00)
[2021-10-19] MEDS ORDERED: NITROGLYCERIN 0.4 MG SUBL TABLET SL PRN (14:00)
[2021-10-19] MEDS: ACETAMINOPHEN TAB 650MG DOSE (2X325MG) PO PRN (14:04)
[2021-10-19] MEDS: AMPICILLIN SOD/SULBACTAM SOD 3 GM in D5W MINI-BAG PLUS 100 ML IV SCH ×2 (14:06→21:07)
[2021-10-19] MEDS: CitaloPRAM (CeleXA) 20 MG TAB PO SCH (15:04)
[2021-10-19] MEDS: buPROPion **XL** TABLET 150MG (WELLBUTRIN XL) PO SCH (15:04)
[2021-10-19] MEDS: NS 1,000 ML IV SCH ×2 (15:05→22:32)
[2021-10-19] MEDS ORDERED: LORazepam 2 MG TAB PO PRN (16:10)
[2021-10-19] MEDS ORDERED: propofoL 200 MG/20 ML VIAL As Ordered ONE (17:44)
[2021-10-19] MEDS ORDERED: LIDOCAINE 2% 100MG/5ML SDV (FOR ANES.) As Ordered ONE (17:44)
[2021-10-19] MEDS ORDERED: MIDAZOLAM INJ 2MG/2ML VIAL (J2250 PER 1MG) As Ordered ONE (17:45)
[2021-10-19] MEDS ORDERED: fentaNYL 100 MCG/2 ML INJECTION As Ordered ONE (17:45)
[2021-10-19] MEDS ORDERED: ONDANSETRON 4MG/2ML VIAL As Ordered ONE (18:40)
[2021-10-19] MEDS ORDERED: KETOROLAC 60MG 2ML VIAL As Ordered ONE (18:40)
[2021-10-19] MEDS ORDERED: dexameTHASONE 4 MG/ML 1ML VIAL (J1100 PER 1MG) As Ordered ONE (18:40)
[2021-10-19] MEDS ORDERED: KETOROLAC 30 MG/ML 1ML VIAL IV PRN (18:42)
[2021-10-19] MEDS ORDERED: TRANEXAMIC ACID 100 MG/ML 10ML VIAL As Ordered ONE (18:43)
[2021-10-19] MEDS: MULTIVITAMINS/MINERALS THERAP 1 TAB PO SCH (18:44)
[2021-10-19] MEDS: FOLIC ACID 1 MG TAB PO SCH (18:45)
[2021-10-19] MEDS ORDERED: fentaNYL 100 MCG/2 ML INJECTION IV PRN (19:00)
[2021-10-19] MEDS ORDERED: ONDANSETRON 4MG/2ML VIAL IV PRN (19:00)
[2021-10-19] MEDS ORDERED: LR 1,000 ML IV SCH (19:00)
[2021-10-19] MEDS ORDERED: oxyCODONE 5MG TAB PO PRN (19:00)
[2021-10-19] MEDS: HEPARIN SOD (PORCINE) 5000UNITS/ML 1ML VIAL/SYRINGE SQ SCH (21:07)
[2021-10-19] MEDS: PROPRANOLOL 10 MG TAB PO SCH (22:30)
[2021-10-19] MEDS: THIAMINE 100 MG TAB PO SCH (22:30)
[2021-10-19] MEDS: DOCUSATE SODIUM 100MG CAPSULE PO SCH (22:30)
[2021-10-20] VITALS (10 sets, daily range): BP systolic 124–142; BP diastolic 73–86
[2021-10-20] MEDS: AMPICILLIN SOD/SULBACTAM SOD 3 GM in D5W MINI-BAG PLUS 100 ML IV SCH ×4 (01:54→20:11)
[2021-10-20] MEDS: NS 1,000 ML IV SCH (05:02)
[2021-10-20 07:09] LABS: HEMATOCRIT 32.6 % (42.0-52.0); LYMPH # 0.9 10^3/uL (1.5-5.0); LYMPH % 8.4 % (24.0-44.0); MEAN CORPUSCULAR HEMOGLOBIN 32.4 pg (27.0-33.0); MEAN CORPUSCULAR HGB CONC 33.7 g/dl (32.0-36.5); MEAN CORPUSCULAR VOLUME 95.9 fl (80.0-96.0); MONO # 0.4 10^3/uL (0.0-0.8); MONO % 4.2 % (2.0-8.0); NEUTROPHILS # 8.9 10^3/uL (1.5-8.5); NEUTROPHILS % 86.5 % (36.0-66.0); PLATELET COUNT, AUTOMATED 158 10^3/uL (150-450); WHITE BLOOD COUNT 10.3 10^3/uL (4.0-10.0)
[2021-10-20 07:44] LABS: ALBUMIN 2.8 GM/DL (3.2-5.2); ALT/SGPT 21 U/L (12-78); BILIRUBIN,TOTAL 0.4 MG/DL (0.2-1.0); BLOOD UREA NITROGEN 5 MG/DL (7-18); CALCIUM LEVEL 8.2 MG/DL (8.5-10.1); CARBON DIOXIDE LEVEL 25 MEQ/L (21-32); CHLORIDE LEVEL 109 MEQ/L (98-107); CREATININE FOR GFR 0.53 MG/DL (0.70-1.30); GLOMERULAR FILTRATION RATE > 60.0 (>56); GLUCOSE, FASTING 141 MG/DL (70-100); MAGNESIUM LEVEL 2.2 MG/DL (1.8-2.4); POTASSIUM SERUM 3.7 MEQ/L (3.5-5.1); SODIUM LEVEL 141 MEQ/L (136-145)
[2021-10-20] MEDS: ACETAMINOPHEN TAB 650MG DOSE (2X325MG) PO PRN (08:59)
[2021-10-20] MEDS: FOLIC ACID 1 MG TAB PO SCH (09:00)
[2021-10-20] MEDS: PROPRANOLOL 10 MG TAB PO SCH ×2 (09:00→20:14)
[2021-10-20] MEDS: THIAMINE 100 MG TAB PO SCH ×2 (09:00→20:07)
[2021-10-20] MEDS: DOCUSATE SODIUM 100MG CAPSULE PO SCH ×2 (09:00→20:07)
[2021-10-20] MEDS: CitaloPRAM (CeleXA) 20 MG TAB PO SCH (09:00)
[2021-10-20] MEDS: MULTIVITAMINS/MINERALS THERAP 1 TAB PO SCH (09:01)
[2021-10-20] MEDS: buPROPion **XL** TABLET 150MG (WELLBUTRIN XL) PO SCH (09:01)
[2021-10-20] MEDS: HEPARIN SOD (PORCINE) 5000UNITS/ML 1ML VIAL/SYRINGE SQ SCH ×2 (09:05→20:07)
[2021-10-20] MEDS ORDERED: SIMETHICONE 80MG CHEW TAB PO PRN (09:50)
[2021-10-20] MEDS: LOPERAMIDE 2 MG CAPLET PO SCH (12:50)
[2021-10-20] MEDS: IMATINIB 400 MG PO SCH (12:51)
[2021-10-21] VITALS (7 sets, daily range): BP systolic 130–146; BP diastolic 72–88
[2021-10-21] MEDS: AMPICILLIN SOD/SULBACTAM SOD 3 GM in D5W MINI-BAG PLUS 100 ML IV SCH ×4 (02:08→20:12)
[2021-10-21 06:52] LABS: BASO % 0.3 % (0.0-1.0); EOS % 0.3 % (0.0-3.0); HEMATOCRIT 31.2 % (42.0-52.0); HEMOGLOBIN 10.6 g/dl (13.5-17.5); LYMPH # 1.7 10^3/uL (1.5-5.0); LYMPH % 21.4 % (24.0-44.0); MEAN CORPUSCULAR HEMOGLOBIN 32.8 pg (27.0-33.0); MEAN CORPUSCULAR VOLUME 96.6 fl (80.0-96.0); MONO # 0.6 10^3/uL (0.0-0.8); MONO % 7.2 % (2.0-8.0); NEUTROPHILS # 5.6 10^3/uL (1.5-8.5); NEUTROPHILS % 70.3 % (36.0-66.0); PLATELET COUNT, AUTOMATED 171 10^3/uL (150-450); RED BLOOD COUNT 3.23 10^6/uL (4.30-6.10)
[2021-10-21 07:22] LABS: ALBUMIN 2.7 GM/DL (3.2-5.2); ALT/SGPT 19 U/L (12-78); BILIRUBIN,TOTAL 0.3 MG/DL (0.2-1.0); BLOOD UREA NITROGEN 8 MG/DL (7-18); C REACTIVE PROTEIN QUANTITATIV 6.43 MG/DL (0.00-0.30); CALCIUM LEVEL 8.2 MG/DL (8.5-10.1); CARBON DIOXIDE LEVEL 29 MEQ/L (21-32); CHLORIDE LEVEL 110 MEQ/L (98-107); CREATININE FOR GFR 0.61 MG/DL (0.70-1.30); GLOMERULAR FILTRATION RATE > 60.0 (>56); GLUCOSE, FASTING 105 MG/DL (70-100); MAGNESIUM LEVEL 2.4 MG/DL (1.8-2.4); POTASSIUM SERUM 3.3 MEQ/L (3.5-5.1); SODIUM LEVEL 143 MEQ/L (136-145); TOTAL PROTEIN 5.6 GM/DL (6.4-8.2)
[2021-10-21] MEDS: LOPERAMIDE 2 MG CAPLET PO SCH (08:16)
[2021-10-21] MEDS: HEPARIN SOD (PORCINE) 5000UNITS/ML 1ML VIAL/SYRINGE SQ SCH ×2 (08:16→20:12)
[2021-10-21] MEDS: DOCUSATE SODIUM 100MG CAPSULE PO SCH ×3 (08:16→20:14)
[2021-10-21] MEDS: buPROPion **XL** TABLET 150MG (WELLBUTRIN XL) PO SCH (08:16)
[2021-10-21] MEDS: THIAMINE 100 MG TAB PO SCH ×2 (08:16→20:14)
[2021-10-21] MEDS: IMATINIB 400 MG PO SCH (08:17)
[2021-10-21] MEDS: FOLIC ACID 1 MG TAB PO SCH (08:17)
[2021-10-21] MEDS: CitaloPRAM (CeleXA) 20 MG TAB PO SCH (08:17)
[2021-10-21] MEDS: MULTIVITAMINS/MINERALS THERAP 1 TAB PO SCH (08:17)
[2021-10-21] MEDS: PROPRANOLOL 10 MG TAB PO SCH ×2 (08:18→20:13)
[2021-10-21] MEDS ORDERED: POTASSIUM CHLORIDE 10MEQ SR TABLET PO ONE (09:15)
[2021-10-21] MEDS: ACETAMINOPHEN TAB 650MG DOSE (2X325MG) PO PRN (10:18)
[2021-10-21] MEDS ORDERED: NORCO, ANEXSIA 5/325MG TABLET (HYDROcodone/ACETAMINOPHEN) PO PRN ×2 (11:25)
[2021-10-22] MEDS: AMPICILLIN SOD/SULBACTAM SOD 3 GM in D5W MINI-BAG PLUS 100 ML IV SCH ×2 (02:27→08:37)
[2021-10-22 06:00] VITALS: BP 149/87
[2021-10-22 06:27] LABS: BASO % 0.7 % (0.0-1.0); EOS # 0.1 10^3/uL (0.0-0.5); EOS % 1.4 % (0.0-3.0); HEMATOCRIT 33.1 % (42.0-52.0); HEMOGLOBIN 10.9 g/dl (13.5-17.5); LYMPH # 1.7 10^3/uL (1.5-5.0); LYMPH % 38.2 % (24.0-44.0); MEAN CORPUSCULAR HEMOGLOBIN 32.1 pg (27.0-33.0); MEAN CORPUSCULAR HGB CONC 32.9 g/dl (32.0-36.5); MEAN CORPUSCULAR VOLUME 97.4 fl (80.0-96.0); MONO # 0.4 10^3/uL (0.0-0.8); MONO % 8.8 % (2.0-8.0); NEUTROPHILS # 2.2 10^3/uL (1.5-8.5); NEUTROPHILS % 50.7 % (36.0-66.0); PLATELET COUNT, AUTOMATED 192 10^3/uL (150-450); WHITE BLOOD COUNT 4.4 10^3/uL (4.0-10.0)
[2021-10-22 06:54] LABS: ALBUMIN 2.6 GM/DL (3.2-5.2); ALT/SGPT 17 U/L (12-78); BILIRUBIN,TOTAL 0.3 MG/DL (0.2-1.0); BLOOD UREA NITROGEN 7 MG/DL (7-18); C REACTIVE PROTEIN QUANTITATIV 3.05 MG/DL (0.00-0.30); CALCIUM LEVEL 8.1 MG/DL (8.5-10.1); CARBON DIOXIDE LEVEL 30 MEQ/L (21-32); CHLORIDE LEVEL 109 MEQ/L (98-107); CREATININE FOR GFR 0.69 MG/DL (0.70-1.30); GLOMERULAR FILTRATION RATE > 60.0 (>56); GLUCOSE, FASTING 96 MG/DL (70-100); MAGNESIUM LEVEL 2.2 MG/DL (1.8-2.4); POTASSIUM SERUM 3.6 MEQ/L (3.5-5.1); SODIUM LEVEL 142 MEQ/L (136-145); TOTAL PROTEIN 5.5 GM/DL (6.4-8.2)
[2021-10-22] MEDS: buPROPion **XL** TABLET 150MG (WELLBUTRIN XL) PO SCH (08:34)
[2021-10-22] MEDS: MULTIVITAMINS/MINERALS THERAP 1 TAB PO SCH (08:35)
[2021-10-22] MEDS: HEPARIN SOD (PORCINE) 5000UNITS/ML 1ML VIAL/SYRINGE SQ SCH (08:36)
[2021-10-22] MEDS: THIAMINE 100 MG TAB PO SCH (08:37)
[2021-10-22] MEDS: CitaloPRAM (CeleXA) 20 MG TAB PO SCH (08:37)
[2021-10-22 08:38] VITALS: BP 124/79
[2021-10-22] MEDS: PROPRANOLOL 10 MG TAB PO SCH (08:38)
[2021-10-22] MEDS: IMATINIB 400 MG PO SCH (08:38)
[2021-10-22] MEDS: FOLIC ACID 1 MG TAB PO SCH (08:39)
[2021-10-22] MEDS: DOCUSATE SODIUM 100MG CAPSULE PO SCH (09:00)
[2021-10-22] MEDS: LOPERAMIDE 2 MG CAPLET PO SCH (09:09)
[2021-10-22] MEDS ORDERED: AMOX875T2 PO (09:49)
[2021-10-22] MEDS ORDERED: HYDR-3715 PO (09:54)
== END 2021-10-22 11:38 | disposition home or self-care (01) | DRG 872 ==
LOC: M ED 06:13 → M ED INP 13:13 → ENRESERV 14:24 → M MSPAV 16:23
PROVIDERS: ADMIT Family Medicine; ATTEND Internal Medicine Nephrology
PROC: 0X9J0ZZ Drainage of Right Hand, Open Approach (ICD-10-PCS; principal; 2021-10-19 17:24)
DX: A41.9 Sepsis, unspecified organism (principal); L02.511 Cutaneous abscess of right hand; C92.10 Chronic myeloid leukemia, BCR/ABL-positive, not having achieved remission; D84.9 Immunodeficiency, unspecified; I50.22 Chronic systolic (congestive) heart failure; I25.10 Atherosclerotic heart disease of native coronary artery without angina pectoris; K21.9 Gastro-esophageal reflux disease without esophagitis; F10.10 Alcohol abuse, uncomplicated; I11.0 Hypertensive heart disease with heart failure; L08.9 Local infection of the skin and subcutaneous tissue, unspecified; S61.451A Open bite of right hand, initial encounter; W55.01XA Bitten by cat, initial encounter; Y92.009 Unspecified place in unspecified non-institutional (private) residence as the place of occurrence of the external cause; G47.33 Obstructive sleep apnea (adult) (pediatric); I25.2 Old myocardial infarction; K76.0 Fatty (change of) liver, not elsewhere classified; Z96.641 Presence of right artificial hip joint; Z95.2 Presence of prosthetic heart valve; G25.0 Essential tremor; Z79.899 Other long term (current) drug therapy; Z88.8 Allergy status to other drugs, medicaments and biological substances; Z87.891 Personal history of nicotine dependence

== ENCOUNTER → 2022-02-13 | Outpatient (CLI) | payer MEDICARE, OTHER ==
[~2022-02-13] MED LIST changes: +AMOX875T2 PO; +HYDR-3715 PO; +IMAT400T PO; +MULT-90 PO; +PROP10TA56 PO
== END ==
LOC: M PLAIMG 06:52
PROVIDERS: ATTEND Physician Assistant Medical
DX: S46.011A Strain of muscle(s) and tendon(s) of the rotator cuff of right shoulder, initial encounter (principal); X58.XXXA Exposure to other specified factors, initial encounter; Y92.9 Unspecified place or not applicable

== ENCOUNTER → 2022-04-24 | Outpatient (CLI) | payer MEDICARE, OTHER ==
[2022-04-24 13:33] LABS: BASO # 0.1 10^3/uL (0.0-0.2); BASO % 0.9 % (0.0-1.0); EOS # 0.2 10^3/uL (0.0-0.5); EOS % 3.1 % (0.0-3.0); HEMOGLOBIN 11.7 g/dl (13.5-17.5); LYMPH % 28.6 % (24.0-44.0); MEAN CORPUSCULAR HEMOGLOBIN 31.2 pg (27.0-33.0); MEAN CORPUSCULAR HGB CONC 32.5 g/dl (32.0-36.5); MONO # 0.8 10^3/uL (0.0-0.8); MONO % 12.2 % (2.0-8.0); NEUTROPHILS # 3.8 10^3/uL (1.5-8.5); NEUTROPHILS % 54.9 % (36.0-66.0); PLATELET COUNT, AUTOMATED 280 10^3/uL (150-450); RED BLOOD COUNT 3.75 10^6/uL (4.30-6.10); WHITE BLOOD COUNT 6.8 10^3/uL (4.0-10.0)
[2022-04-24 13:44] LABS: INR 0.95; PROTHROMBIN TIME 12.9 SECONDS (12.5-14.5)
[2022-04-24 13:45] LABS: PARTIAL THROMBOPLASTIN TIME 28.3 SECONDS (24.8-34.2)
[2022-04-24 13:48] LABS: ALBUMIN 3.7 G/DL (3.2-5.2); ALT/SGPT 21 U/L (7.0-40); BILIRUBIN,TOTAL 0.4 MG/DL (0.3-1.2); BLOOD UREA NITROGEN 17 MG/DL (9-23); CALCIUM LEVEL 9.8 MG/DL (8.5-10.1); CARBON DIOXIDE LEVEL 30 MMOL/L (20-31); CHLORIDE LEVEL 107 MMOL/L (98-107); CREATININE FOR GFR 1.01 MG/DL (0.70-1.30); GLOMERULAR FILTRATION RATE > 60.0 (>56); GLUCOSE, FASTING 96 MG/DL (60-100); MAGNESIUM LEVEL 2.3 MG/DL (1.8-2.4); POTASSIUM SERUM 4.6 MMOL/L (3.5-5.1); SODIUM LEVEL 142 MMOL/L (136-145); TOTAL PROTEIN 6.6 G/DL (5.7-8.2)
== END ==
LOC: M PLALAB 10:07
PROVIDERS: ATTEND Family Medicine
DX: I25.10 Atherosclerotic heart disease of native coronary artery without angina pectoris (principal); C92.10 Chronic myeloid leukemia, BCR/ABL-positive, not having achieved remission; I50.20 Unspecified systolic (congestive) heart failure

== ENCOUNTER 2023-07-06 22:21 | Emergency (ER) | payer MEDICARE, OTHER ==
[~2023-07-06] VITALS: Ht 177.8 cm; Wt 104.0 kg
[~2023-07-06 22:21] MED LIST changes: -ROPI0.5T3 PO; +ROPI0.5T33 PO
[2023-07-06 23:04] LABS: BASO # 0.1 10^3/uL (0.0-0.2); BASO % 0.7 % (0.0-1.0); EOS # 0.2 10^3/uL (0.0-0.5); EOS % 2.1 % (0.0-3.0); HEMOGLOBIN 12.8 g/dl (13.5-17.5); LYMPH # 2.7 10^3/uL (1.5-5.0); LYMPH % 27.9 % (24.0-44.0); MEAN CORPUSCULAR HGB CONC 33.7 g/dl (32.0-36.5); MONO % 10.2 % (2.0-8.0); NEUTROPHILS # 5.8 10^3/uL (1.5-8.5); NEUTROPHILS % 58.8 % (36.0-66.0); PLATELET COUNT, AUTOMATED 315 10^3/uL (150-450); RED BLOOD COUNT 4.27 10^6/uL (4.30-6.10); WHITE BLOOD COUNT 9.8 10^3/uL (4.0-10.0)
[2023-07-06 23:09] LABS: INR 1.05; PROTHROMBIN TIME 13.4 SECONDS (12.5-14.5)
[2023-07-06 23:11] LABS: ETHYL ALCOHOL (ETHANOL) 0.112 % (0.000-0.010); LIPASE 30 U/L (12-53)
[2023-07-06 23:54] LABS: ALBUMIN 3.3 G/DL (3.2-5.2); ALKALINE PHOSPHATASE 92 U/L (46-116); ALT/SGPT 74 U/L (7.0-40); AST/SGOT 67 U/L (<34); BILIRUBIN,DIRECT < 0.1 MG/DL (<0.4); BILIRUBIN,TOTAL 0.2 MG/DL (0.3-1.2); BLOOD UREA NITROGEN 13 MG/DL (9-23); CALCIUM LEVEL 8.9 MG/DL (8.5-10.1); CARBON DIOXIDE LEVEL 22 MMOL/L (20-31); CHLORIDE LEVEL 105 MMOL/L (98-107); CREATININE FOR GFR 1.07 MG/DL (0.70-1.30); GLOMERULAR FILTRATION RATE > 60.0 (>56); GLUCOSE, FASTING 65 MG/DL (60-100); POTASSIUM SERUM 3.2 MMOL/L (3.5-5.1); SODIUM LEVEL 137 MMOL/L (136-145); TOTAL PROTEIN 7.3 G/DL (5.7-8.2)
[2023-07-07 02:15] VITALS: BP 149/94; TEMP 98.3; O2SAT 95
== END 2023-07-07 02:45 | disposition home or self-care (01) ==
LOC: M ED 22:21
DX: R55 Syncope and collapse (principal); F10.20 Alcohol dependence, uncomplicated; E16.2 Hypoglycemia, unspecified; W01.198A Fall on same level from slipping, tripping and stumbling with subsequent striking against other object, initial encounter; I10 Essential (primary) hypertension; F32.A Depression, unspecified; Z98.84 Bariatric surgery status; Z79.52 Long term (current) use of systemic steroids; Z79.810 Long term (current) use of selective estrogen receptor modulators (SERMs); Z79.83 Long term (current) use of bisphosphonates; Z79.899 Other long term (current) drug therapy

== ENCOUNTER → 2023-07-14 | Outpatient (CLI) | payer MEDICARE ==
[2023-07-14 17:14] LABS: BASO # 0.1 10^3/uL (0.0-0.2); EOS # 0.3 10^3/uL (0.0-0.5); EOS % 3.3 % (0.0-3.0); HEMATOCRIT 39.9 % (42.0-52.0); HEMOGLOBIN 13.1 g/dl (13.5-17.5); LYMPH # 2.4 10^3/uL (1.5-5.0); LYMPH % 25.7 % (24.0-44.0); MEAN CORPUSCULAR HEMOGLOBIN 29.3 pg (27.0-33.0); MEAN CORPUSCULAR HGB CONC 32.8 g/dl (32.0-36.5); MEAN CORPUSCULAR VOLUME 89.3 fl (80.0-96.0); MONO % 11.3 % (2.0-8.0); NEUTROPHILS # 5.4 10^3/uL (1.5-8.5); NEUTROPHILS % 58.3 % (36.0-66.0); PLATELET COUNT, AUTOMATED 324 10^3/uL (150-450); RED BLOOD COUNT 4.47 10^6/uL (4.30-6.10); WHITE BLOOD COUNT 9.2 10^3/uL (4.0-10.0)
[2023-07-14 17:34] LABS: IRON (FE) 125 UG/DL (65-175)
[2023-07-14 17:35] LABS: ALBUMIN 3.5 G/DL (3.2-5.2); ALKALINE PHOSPHATASE 95 U/L (46-116); ALT/SGPT 73 U/L (7.0-40); AST/SGOT 59 U/L (<34); BILIRUBIN,TOTAL 0.3 MG/DL (0.3-1.2); BLOOD UREA NITROGEN 18 MG/DL (9-23); CARBON DIOXIDE LEVEL 29 MMOL/L (20-31); CHLORIDE LEVEL 106 MMOL/L (98-107); CREATININE FOR GFR 1.03 MG/DL (0.70-1.30); GLOMERULAR FILTRATION RATE > 60.0 (>56); GLUCOSE, FASTING 96 MG/DL (60-100); POTASSIUM SERUM 4.9 MMOL/L (3.5-5.1); SODIUM LEVEL 138 MMOL/L (136-145); TOTAL PROTEIN 7.1 G/DL (5.7-8.2)
[2023-07-14 17:39] LABS: FERRITIN 72.7 NG/ML (10.5-307.3)
[2023-07-14 17:49] LABS: HEMOGLOBIN A1c 5.3 % (4.0-6.0)
== END ==
LOC: M PLALAB 15:14
PROVIDERS: ATTEND Physician Assistant Medical
DX: K76.0 Fatty (change of) liver, not elsewhere classified (principal); D64.9 Anemia, unspecified; E16.2 Hypoglycemia, unspecified

== ENCOUNTER → 2024-08-01 | Outpatient (CLI) | payer MEDICARE, MEDICAID ==
[~2024-08-01] MED LIST changes: +GABA-1490 PO; -GABA600T4 PO
== END ==
LOC: M SOG 07:54
PROVIDERS: ATTEND Physician Assistant
DX: M79.642 Pain in left hand (principal); M79.645 Pain in left finger(s); Z53.9 Procedure and treatment not carried out, unspecified reason

== ENCOUNTER → 2024-08-15 | Outpatient (CLI) | payer MEDICARE, MEDICAID | LOC: M SOG 07:52 | PROVIDERS: ATTEND Physician Assistant | DX: Z53.9 Procedure and treatment not carried out, unspecified reason (principal) ==

== ENCOUNTER → 2024-08-23 | Outpatient (CLI) | payer MEDICARE, MEDICAID | LOC: M SOG 07:49 | PROVIDERS: ATTEND Physician Assistant | DX: M19.90 Unspecified osteoarthritis, unspecified site (principal) ==

== ENCOUNTER → 2025-04-12 | Outpatient (CLI) | payer MEDICARE, MEDICAID ==
[~2025-04-12] MED LIST changes: -IBUP-1022 PO; +IBUP600T42 PO
[2025-04-12 18:09] LABS: BASO # 0.1 10^3/uL (0.0-0.2); BASO % 1.1 % (0.0-1.0); EOS # 0.3 10^3/uL (0.0-0.5); EOS % 3.3 % (0.0-3.0); LYMPH # 2.1 10^3/uL (1.5-5.0); LYMPH % 26.0 % (24.0-44.0); MONO # 1.1 10^3/uL (0.0-0.8); MONO % 12.9 % (2.0-8.0); NEUTROPHILS # 4.6 10^3/uL (1.5-8.5); NEUTROPHILS % 56.3 % (36.0-66.0); PLATELET COUNT, AUTOMATED 325 10^3/uL (150-450)
[2025-04-12 18:15] LABS: IRON (FE) 111 UG/DL (65-175)
[2025-04-12 18:16] LABS: ALT/SGPT 87 U/L (7.0-40); AST/SGOT 129 U/L (<34); CALCIUM LEVEL 9.2 MG/DL (8.5-10.1); CARBON DIOXIDE LEVEL 25 MMOL/L (20-31); CHLORIDE LEVEL 102 MMOL/L (98-107); CHOLESTEROL LEVEL 248 MG/DL (<200); CHOLESTEROL RISK RATIO 2.17 (<5); CREATININE FOR GFR 0.89 MG/DL (0.70-1.30); GLOMERULAR FILTRATION RATE > 90.0 (>56); LDL CHOLESTEROL 115.6 MG/DL (<100); NON-HDL-C 133.8 MG/DL; POTASSIUM SERUM 5.2 MMOL/L (3.5-5.1); PSA SCREENING 0.51 NG/ML (< 4.00); SODIUM LEVEL 134 MMOL/L (136-145); TOTAL 25(OH) VITAMIN D 25.5 NG/ML (20.0-100.0); TRIGLYCERIDES LEVEL 91 MG/DL (<150)
[2025-04-12 18:17] LABS: VITAMIN B12 LEVEL 458 PG/ML (211-911)
[2025-04-12 18:29] LABS: ESTIMATED AVERAGE GLUCOSE 117.0 MG/DL (60-110)
== END ==
LOC: M PLALAB 14:26
PROVIDERS: ATTEND Physician Assistant Medical
DX: D64.9 Anemia, unspecified (principal); I50.20 Unspecified systolic (congestive) heart failure; Z12.5 Encounter for screening for malignant neoplasm of prostate
CPT/HCPCS: 36415; 80053; 80061; 82306; 82607; 82728; 83036; 83540; 83880; 84207; 85025; G0103